=== PATIENT | female | born 1930 | race Caucasian/White ===

== ENCOUNTER 2017-10-16 21:44 | Observation (INO) ==
--- NOTE | 2017-10-16 22:44 | Emergency Department Note ---
Disposition Clinical Impression: Chest pain Qualifiers: Chest pain type: unspecified Qualified Code(s): R07.9 - Chest pain, unspecified Disposition: Admitted As Inpatient Condition: Good Time of Disposition: 00:44 Chest Pain HPI - General Chief Complaint: ED Chest Pain Stated Complaint: chest pain,left arm pain Time Seen by Provider: 10/16/17 22:35 Source: patient, family Mode of arrival: ambulatory Limitations: other Vital Signs Reviewed: Yes Nursing Notes Reviewed: Yes - History of Present Illness HPI Narrative: I have re-performed and reviewed the history documented by the medical student, and I confirm its accuracy except as noted below Agree with medical student history of present illness. We will also add the patient is poor historian, unable to describe the pain other than burning. She does deny any current pain in the chest, shortness of breath. However, she is not able to give me any additional detail as to how long her pain has lasted today, when it ended, if there is any exertional component or pleuritic component. Family is also unable to provide these details. She does deny any history of previous NH, cardiac stents. Severity scale (1-10): 10 - Related Data Home Medications Medication Instructions Recorded Confirmed Alendronate Sodium [Fosamax] 70 mg PO QWEEK 07/07/15 07/07/15 Allopurinol [Zyloprim 100 MG] 100 mg PO DAILY 07/07/15 07/07/15 Aspirin 81 mg PO DAILY 07/07/15 07/07/15 Calcium Carbonate/Vitamin D3 1 each PO DAILY 07/07/15 07/07/15 [Calcium 600 + Vit D Tablet] Colestipol HCl [Colestid] 1 gm PO DAILY 07/07/15 07/07/15 Donepezil [Aricept] 10 mg PO HS 07/07/15 07/07/15 Glimepiride [Amaryl] 1 mg PO DAILY 07/07/15 07/07/15 Oxybutynin [Ditropan] 5 mg PO BID 07/07/15 07/07/15 Simvastatin [Zocor] 40 mg PO HS 07/07/15 07/07/15 Venlafaxine HCl [Venlafaxine HCl 150 mg PO DAILY 07/07/15 07/07/15 ER] metFORMIN [Glucophage] 500 mg PO BID 07/07/15 07/07/15 Previous Rx's Medication Instructions Recorded Celecoxib [Celebrex] 100 mg PO BID #20 capsule 07/11/15 Cyclobenzaprine [Flexeril] 10 mg PO TID #20 tablet 07/11/15 Hydrocodone/Acetaminophen [[place] 1 tab PO Q6H PRN #20 07/11/15 5-325 Tablet] Allergies Allergy/AdvReac Type Severity Reaction Status Date / Time atorvastatin [From Lipitor] Allergy Muscle Pain Verified 07/07/15 01:42 morphine AdvReac Nightmare Verified 07/07/15 01:42 All systems ED: reviewed and negative except as stated. Constitutional: Denies: fever Cardiovascular: Reports: chest pain Respiratory: Reports: dyspnea Gastrointestinal: Denies: abdominal pain, nausea, vomiting, diarrhea Genitourinary: Denies: urgency, dysuria Integumentary: Denies: rash Neurological: Denies: headache, weakness, numbness Chest Pain PMH - Past Medical History Medical history: Reports: arthritis, coronary artery disease, dementia, diabetes , GERD, hyperlipidemia, hypertension, osteoporosis, renal disease, syncope, other Surgical history: Reports: angioplasty/stent (Left heart catheterization without stent placements.), appendectomy, cholecystectomy, hysterectomy, orthopedic, other (Hammertoe surgery. Carpal tunnel surgery.), sinus surgery ( Tonsillectomy adenoidectomy), other (Bladder tuck procedure.) Psychiatric history: Reports: anxiety, depression, other - Social History Smoking Status: Former smoker Alcohol use: Reports: none Drug use: Reports: none Physical Exam - General Limitations: other General appearance: alert - Head Head exam: atraumatic, normocephalic, normal inspection - Eye Eye exam: Present: normal appearance, PERRL, EOMI - ENT ENT exam: normal exam, normal oropharynx, mucous membranes moist - Neck Neck exam: Present: normal inspection, full ROM, trachea midline - Chest Chest inspection: Present: normal inspection, symmetric chest wall rise - Respiratory Respiratory exam: Present: normal lung sounds bilaterally - Cardiovascular Cardiovascular exam: Present: regular rate, normal rhythm, normal heart sounds - Abdominal Exam Abdominal exam: Present: soft, Non-Tender. Absent: tenderness, distention, guarding, rebound, rigidity - Extremities Exam Extremities exam: Present: normal inspection, full ROM. Absent: tenderness, pedal edema - Neurological Exam Neurological exam: Present: alert. Absent: motor sensory deficit - Expanded Neurological Exam Patient oriented to: Present: person, place. Absent: time Speech: Present: fluid speech Cranial nerves: EOM function (II, III, IV, ): Normal, facial sensation (V): Normal, facial palsy (VII): Normal, spinal accessory function (XI): Normal, tongue deviation (XII): Normal Motor strength - LUE: 5/5 Motor strength - RUE: 5/5 Motor strength - LLE: 5/5 Motor strength - RLE: 5/5 Sensory exam upper extremity: light touch: Normal Sensory exam lower extremity: light touch: Normal Coma Scale Eye Opening: Spontaneous Coma Scale Motor Response: Obeys Commands Coma Scale Verbal Response: Confused (Pleasantly confused consistent with Alzheimer's) Coma Scale Total: 14 - Psychiatric Psychiatric exam: Present: normal affect, normal mood - Skin Skin exam: Present: warm, dry, intact, normal color Course Course Narrative: Patient hypertensive in 170s on presentation, rechecked and 140 systolic on recheck. The rest of the vitals WNL. Physical exam shows a patient in no acute distress. She is denying current dyspnea or chest pain but is a very poor historian. No focal neuro deficits. Patient pleasantly confused per baseline with dementia. We will obtain EKG, chest x-ray, troponin. We will admit for chest pain rule out once labs return. 00:14 Trop negative. EKG does show some widening of the QRS and evidence of bundle branch block and 2, 3, aVF. She does have evidence of previous bundle branch block and lead to on previous EKG. Otherwise no acute ST elevation or depression. The rest of the basic blood work showed no major abnormalities. Chest x-ray was negative. Due to poor history, concern for chest pain, abnormal EKG will admit the patient for chest pain rule out. Chest X-Ray 10/16/17 21:53 IMPRESSION: No acute process. D/ / Andrés Her MD / Andrés Her MD Interpreting Provider: Andrés Her MD Vital Signs Temperature 98 F 10/16/17 21:45 Pulse Rate 81 10/16/17 21:45 Respiratory Rate 16 10/16/17 21:45 Blood Pressure 177/71 10/16/17 21:45 O2 Sat by Pulse Oximetry 95 10/16/17 21:45 Temperature 98.4 F 10/17/17 01:28 Pulse Rate 61 10/17/17 01:28 Respiratory Rate 18 10/17/17 01:28 Blood Pressure 112/60 10/17/17 01:28 O2 Sat by Pulse Oximetry 99 10/17/17 01:28 Oxygen Delivery Oxygen Delivery Room Air Chest Pain - MDM Narrative Medical decision making narrative: Patient hypertensive in 170s on presentation, rechecked and 140 systolic on recheck. The rest of the vitals WNL. Physical exam shows a patient in no acute distress. She is denying current dyspnea or chest pain but is a very poor historian. No focal neuro deficits. Patient pleasantly confused per baseline with dementia. We will obtain EKG, chest x-ray, troponin. We will admit for chest pain rule out once labs return. 00:14 Trop negative. EKG does show some widening of the QRS and evidence of bundle branch block and 2, 3, aVF. She does have evidence of previous bundle branch block and lead to on previous EKG. Otherwise no acute ST elevation or depression. The rest of the basic blood work showed no major abnormalities. Chest x-ray was negative. HEART score 6. Due to poor history, concern for chest pain, abnormal EKG will admit the patient for chest pain rule out. - Medical Records Medical records reviewed: Yes I reviewed the patient's medical records. - Lab Data Lab results reviewed: Yes I reviewed the patient's lab results. Result diagrams: 10/16/17 22:59 10/16/17 22:59 Lab Results 10/16/17 10/16/17 10/16/17 Range/Units 22:59 22:59 22:59 WBC 7.5 (4.3-11.1) K/mcL RBC 3.69 L (3.82-4.97) M/mcL Hgb 11.7 (11.5-15.4) g/dL Hct 34.1 L (35.3-44.9) % MCV 92.4 (83.0-100.0) fL MCH 31.7 (28.0-33.3) pg MCHC 34.3 (31.6-35.5) g/dL RDW 13.2 (11.5-14.5) % Plt Count 160 (140-400) K/mcL MPV 10.3 (9.4-12.4) fL Immature Gran % 0.3 (0-4) % Seg Neutrophils % 59.2 % Lymphocytes % 30.2 % Monocytes % 6.9 % Eosinophils % 2.9 % Basophils % 0.5 % Neutrophils # 4.4 (1.6-8.9) K/mcL Lymphocytes # 2.3 (0.6-4.6) K/mcL Monocytes # 0.5 (0.0-1.3) K/mcL Eosinophils # 0.2 (0.0-0.6) K/mcL Basophils # 0.0 (0.0-0.2) K/mcL PT 11.4 (9.4-12.1) Seconds INR 1.0 APTT 28.7 (26.0-36.0) Seconds Sodium 137 (136-145) mEq/L Potassium 3.8 (3.5-5.1) mEq/L Chloride 104 (98-107) mEq/L Carbon Dioxide 27 (23-29) mEq/L BUN 14 (8-23) mg/dL Creatinine 0.63 (0.60-1.20) mg/dL Est GFR ( Amer) > 60 (> 60) Est GFR (Non-Af Amer) > 60 (> 60) BUN/Creatinine Ratio 22 (6-26) Glucose 187 H (70-105) mg/dL Calculated Osmolality 289 (280-300) Calcium 9.2 (8.6-10.3) mg/dL Troponin I < 0.03 (< 0.04) ng/mL - Radiology Data Radiology results reviewed: Yes I reviewed the patient's radiology results. - EKG Data EKG attestation: Yes I reviewed and interpreted this EKG. EKG results narrative: 10/16/2017 at 21:49. Sinus rhythm, rate 79. NC 131. QRS 157. QTC 4 and 63. Left axis deviation. There is evidence of bundle branch block, this is present in lead 2, V6 on previous EKG on 07/07/2015 but worsened on this EKG. There is widening of the QRS. No acute ST elevation or depression. Heart Score - Score History: Moderately Suspicious EKG: Non Specific repolarisation Disturbance Age: Greater than 65 Risk Factors: Equal/Greater than 3 risk factor or history of atherosclerotic disease Troponin: Less than normal limit HEART Score Total: 6 S.B.A.R. - S.B.A.R. Situation: Demographics, MOA Background: Presenting Complaint, Relevant PMH, Meds, & Allergies Assessment: Vital Signs, Course and respsone to treatment, Exam Concerns, Patient/Family Expectation, Pertinant Lab Results Recommendation: Barrier(s) to disposition, Recommendation based on pending studies, treatments, or consults S.B.A.R. Report Given to: Dr. Jimenez Attestation Statement - Attestation Attestation: I examined this patient and my medical decision-making was reviewed with the Resident Physician. I agree with the documented findings, disposition and treatment plan as described except to the extent set forth below. Findings consistent with chest pain. Patient with multiple risk factors. EKG is nondiagnostic at this time. Patient be admitted for serial cardiac biomarkers and cardiac consultation.
--- NOTE | 2017-10-16 23:07 | Emergency Department Note ---
Disposition Clinical Impression: Chest pain Qualifiers: Chest pain type: unspecified Qualified Code(s): R07.9 - Chest pain, unspecified Disposition: Admitted As Inpatient Condition: Good General Adult HPI - General Chief complaint: ED Chest Pain Stated complaint: chest pain,left arm pain Time Seen by Provider: 10/16/17 22:35 Source: patient, family Mode of arrival: ambulatory Limitations: other Vital Signs Reviewed: Yes - History of Present Illness HPI Narrative: 86 y.o. female with PMHx significant for Alzheimer's and aortic valve replacement who presents c/o CP x today. Patient's daughter states she described the pain as burning in nature and that it lasted for several hours. She has also been complaining of L arm and neck pain for the past week or two, with patient's daughter noting that they recently installed a bed rain and believe she has been pulling herself up on it. She was given an Aleve approximately 2 hours [employer], which did not improve symptoms. Daughter denies any recent trauma or falls. She is primarily wheelchair bound and does not walk. Patient has had no other complaints. History is provided by patient's daughters. Pt Subjective Complaint: CP Onset (ago): hour(s) Location: chest Quality: burning Consistency: now resolved Associated symptoms: Denies: cough, fever/chills, headaches, nausea/vomiting, shortness of breath Treatments Prior to Arrival: other (Aleve 8pm) - Related Data Home Medications Medication Instructions Recorded Confirmed Alendronate Sodium [Fosamax] 70 mg PO QWEEK 07/07/15 07/07/15 Allopurinol [Zyloprim 100 MG] 100 mg PO DAILY 07/07/15 07/07/15 Aspirin 81 mg PO DAILY 07/07/15 07/07/15 Calcium Carbonate/Vitamin D3 1 each PO DAILY 07/07/15 07/07/15 [Calcium 600 + Vit D Tablet] Colestipol HCl [Colestid] 1 gm PO DAILY 07/07/15 07/07/15 Donepezil [Aricept] 10 mg PO HS 07/07/15 07/07/15 Glimepiride [Amaryl] 1 mg PO DAILY 07/07/15 07/07/15 Oxybutynin [Ditropan] 5 mg PO BID 07/07/15 07/07/15 Simvastatin [Zocor] 40 mg PO HS 07/07/15 07/07/15 Venlafaxine HCl [Venlafaxine HCl 150 mg PO DAILY 07/07/15 07/07/15 ER] metFORMIN [Glucophage] 500 mg PO BID 07/07/15 07/07/15 Previous Rx's Medication Instructions Recorded Celecoxib [Celebrex] 100 mg PO BID #20 capsule 07/11/15 Cyclobenzaprine [Flexeril] 10 mg PO TID #20 tablet 07/11/15 Hydrocodone/Acetaminophen [[place] 1 tab PO Q6H PRN #20 07/11/15 5-325 Tablet] Allergies Allergy/AdvReac Type Severity Reaction Status Date / Time atorvastatin [From Lipitor] Allergy Muscle Pain Verified 07/07/15 01:42 morphine AdvReac Nightmare Verified 07/07/15 01:42 Constitutional: Denies: fever, chills Cardiovascular: Reports: chest pain. Denies: syncope Respiratory: Denies: cough, dyspnea, wheezes Gastrointestinal: Denies: abdominal pain, nausea, vomiting, diarrhea, constipation Musculoskeletal: Reports: neck pain (L sided), other (L arm) Past Medical History - Past Medical History Medical history: Reports: arthritis, coronary artery disease, dementia, diabetes , GERD, hyperlipidemia, hypertension, osteoporosis, renal disease, syncope, other Surgical history: Reports: angioplasty/stent (Left heart catheterization without stent placements.), appendectomy, cholecystectomy, hysterectomy, orthopedic, other (Hammertoe surgery. Carpal tunnel surgery.), sinus surgery ( Tonsillectomy adenoidectomy), other (Bladder tuck procedure.) Psychiatric history: Reports: anxiety, depression, other - Social History Smoking Status: Former smoker Smokeless Tobacco Status: No Alcohol use: Reports: none Drug use: Reports: none Physical Exam - General Limitations: other General appearance: alert, in no apparent distress - Head Head exam: atraumatic, normocephalic - Eye Eye exam: Present: normal appearance, EOMI. Absent: scleral icterus, conjunctival injection - Neck Neck exam: Present: normal inspection. Absent: tenderness, lymphadenopathy - Chest Chest inspection: Absent: tenderness - Respiratory Respiratory exam: Present: normal lung sounds bilaterally. Absent: respiratory distress, wheezes - Cardiovascular Cardiovascular exam: Present: regular rate, normal rhythm, +S1, +S2. Absent: systolic murmur - Abdominal Exam Abdominal exam: Present: soft, Non-Tender, normal bowel sounds. Absent: distention, guarding, rebound, rigidity - Neurological Exam Neurological exam: Present: alert Course Vital Signs Temperature 98 F 10/16/17 21:45 Pulse Rate 81 10/16/17 21:45 Respiratory Rate 16 10/16/17 21:45 Blood Pressure 177/71 10/16/17 21:45 O2 Sat by Pulse Oximetry 95 10/16/17 21:45 Temperature 98.4 F 10/17/17 01:28 Pulse Rate 61 10/17/17 01:28 Respiratory Rate 18 10/17/17 01:28 Blood Pressure 112/60 10/17/17 01:28 O2 Sat by Pulse Oximetry 99 10/17/17 01:28 Oxygen Delivery Oxygen Delivery Room Air Medical Decision Making - Lab Data Result diagrams: 10/16/17 22:59 10/16/17 22:59 Lab Results 10/16/17 10/16/17 10/16/17 Range/Units 22:59 22:59 22:59 WBC 7.5 (4.3-11.1) K/mcL RBC 3.69 L (3.82-4.97) M/mcL Hgb 11.7 (11.5-15.4) g/dL Hct 34.1 L (35.3-44.9) % MCV 92.4 (83.0-100.0) fL MCH 31.7 (28.0-33.3) pg MCHC 34.3 (31.6-35.5) g/dL RDW 13.2 (11.5-14.5) % Plt Count 160 (140-400) K/mcL MPV 10.3 (9.4-12.4) fL Immature Gran % 0.3 (0-4) % Seg Neutrophils % 59.2 % Lymphocytes % 30.2 % Monocytes % 6.9 % Eosinophils % 2.9 % Basophils % 0.5 % Neutrophils # 4.4 (1.6-8.9) K/mcL Lymphocytes # 2.3 (0.6-4.6) K/mcL Monocytes # 0.5 (0.0-1.3) K/mcL Eosinophils # 0.2 (0.0-0.6) K/mcL Basophils # 0.0 (0.0-0.2) K/mcL PT 11.4 (9.4-12.1) Seconds INR 1.0 APTT 28.7 (26.0-36.0) Seconds Sodium 137 (136-145) mEq/L Potassium 3.8 (3.5-5.1) mEq/L Chloride 104 (98-107) mEq/L Carbon Dioxide 27 (23-29) mEq/L BUN 14 (8-23) mg/dL Glucose 187 H (70-105) mg/dL Calculated Osmolality 289 (280-300) Calcium 9.2 (8.6-10.3) mg/dL Troponin I < 0.03 (< 0.04) ng/mL
[2017-10-16 23:21] LABS: Basophils % 0.5 %; Eosinophils # 0.2 K/mcL (0.0-0.6); Eosinophils % 2.9 %; Hematocrit 34.1 % (35.3-44.9); Hemoglobin 11.7 g/dL (11.5-15.4); Immature Granulocytes % 0.3 % (0-4); Lymphocytes # 2.3 K/mcL (0.6-4.6); Lymphocytes % 30.2 %; Mean Corpuscular HGB Conc 34.3 g/dL (31.6-35.5); Mean Corpuscular Hemoglobin 31.7 pg (28.0-33.3); Mean Corpuscular Volume 92.4 fL (83.0-100.0); Mean Platelet Volume 10.3 fL (9.4-12.4); Monocytes # 0.5 K/mcL (0.0-1.3); Monocytes % 6.9 %; Neutrophils # 4.4 K/mcL (1.6-8.9); Platelet Count 160 K/mcL (140-400); Red Blood Count 3.69 M/mcL (3.82-4.97); Red Cell Distribution Width 13.2 % (11.5-14.5); Segmented Neutrophils % 59.2 %
[2017-10-16 23:35] LABS: Prothrombin Time 11.4 Seconds (9.4-12.1)
[2017-10-16 23:38] LABS: Activated Partial Thrombo Time 28.7 Seconds (26.0-36.0)
[2017-10-16 23:42] LABS: Blood Urea Nitrogen 14 mg/dL (8-23); Calcium 9.2 mg/dL (8.6-10.3); Carbon Dioxide 27 mEq/L (23-29); Chloride 104 mEq/L (98-107); Glucose 187 mg/dL (70-105); Osmolality,Calculated 289 (280-300); Potassium 3.8 mEq/L (3.5-5.1); Sodium 137 mEq/L (136-145); Troponin I < 0.03 ng/mL (< 0.04)
[2017-10-17] MEDS ORDERED: Aspirin 325 MG TABLET PO ONE (00:11)
[2017-10-17 02:32] LABS: BUN/Creatinine Ratio 22 (6-26); eGFR For Non-African Americans > 60 (> 60)
[2017-10-17] MEDS ORDERED: Naloxone 0.4 MG/ML INJ IVP PRN (07:58)
[2017-10-17] MEDS ORDERED: Acetaminophen 325 MG TABLET PO PRN (07:58)
[2017-10-17 08:52] LABS: Basophils # 0.1 K/mcL (0.0-0.2); Basophils % 0.9 %; Eosinophils # 0.3 K/mcL (0.0-0.6); Eosinophils % 4.9 %; Hematocrit 32.4 % (35.3-44.9); Immature Granulocytes % 0.4 % (0-4); Lymphocytes # 1.8 K/mcL (0.6-4.6); Mean Corpuscular Hemoglobin 31.6 pg (28.0-33.3); Mean Corpuscular Volume 93.1 fL (83.0-100.0); Mean Platelet Volume 10.4 fL (9.4-12.4); Monocytes # 0.4 K/mcL (0.0-1.3); Monocytes % 8.3 %; Neutrophils # 2.7 K/mcL (1.6-8.9); Platelet Count 130 K/mcL (140-400); Red Blood Count 3.48 M/mcL (3.82-4.97); Red Cell Distribution Width 13.2 % (11.5-14.5); Segmented Neutrophils % 51.5 %
[2017-10-17] MEDS ORDERED: Metoprolol XL (24 HR) Succ 25 MG TAB.ER.24H PO SCH (09:00)
[2017-10-17] MEDS ORDERED: Venlafaxine XR (24 HR) 150 MG CAP.ER.24H PO SCH (09:00)
[2017-10-17] MEDS ORDERED: Aspirin 81 MG TAB.CHEW PO SCH (09:00)
[2017-10-17 09:10] LABS: BUN/Creatinine Ratio 21 (6-26); Blood Urea Nitrogen 12 mg/dL (8-23); Carbon Dioxide 30 mEq/L (23-29); Chloride 105 mEq/L (98-107); Glucose 127 mg/dL (70-105); Osmolality,Calculated 291 (280-300); Potassium 3.8 mEq/L (3.5-5.1); Sodium 140 mEq/L (136-145); eGFR For Non-African Americans > 60 (> 60)
[2017-10-17 09:11] LABS: Chol/HDL Ratio 3.1 (0-4.9)
[2017-10-17 10:31] VITALS: BP 134/51
--- NOTE | 2017-10-17 14:39 | Internal Med History&Physical ---
Date of Encounter: 10/17/17 Time of Encounter: 09:30 Internal Medicine - H&P: HPI Chief complaint: Chest pain Admitted From: Emergency Dept Plans for Post Hospital Care: Home History of present illness: Ms. Perez is a 86 year old female with history of dementia, hypertension, diabetes, aortic valve replacement with bioprosthetic valve, was brought in by family with complaints of chest pain. Patient is unable to provide any history due to underlying dementia, which is obtained from review of emergency room records and from patient's daughter at bedside. She is ADL dependent and does have 24-hour home supervision. She has been complaining of left arm and shoulder pain for the past week, has been crying in pain yesterday due to retrosternal chest pain, radiating to her neck and jaw. She has no associated diaphoresis, nausea, vomiting, shortness of breath or distress. Patient had a new bedrail installed at home to help her with picking herself up in bed, and family thinks her left arm pain may have been related to this. At this time, patient seems comfortable and does not report any ongoing symptoms , she tolerates diet. Past Med Surg Social Fam HX - Past Medical History Source: old records reviewed, obtained from family Medical history: arthritis, coronary artery disease, dementia, diabetes, GERD, hyperlipidemia, hypertension, osteoporosis, renal disease, other Additional medical history: aortic stenosis Psychiatric history: anxiety, depression - Past Surgical History Surgical History: appendectomy, cholecystectomy, heart valve replacement, hysterectomy, orthopedic, other (Hammertoe surgery. Carpal tunnel surgery.), sinus surgery (Tonsillectomy adenoidectomy), other (Bladder tuck procedure.) - Social History Smoking Status: Former smoker Smokeless Tobacco Status: No Alcohol use: none Drug use: none Occupational status: retired Current living situation: Home, With Family Activity Level: Independent ambulation Recent Out of Country Travel Within the Last 8 Weeks: No Exposure or Possible Exposure to Illness During Travel: No - Family History Mother Hx Family Cancer: Yes (hodgkins lymphoma) Sister Hx Family Cardiac Disorders: Yes ([place]) Internal Medicine - H&P: Meds Allopurinol [Zyloprim 100 MG] 100 mg PO DAILY 07/07/15 [History] Aspirin 81 mg PO DAILY 07/07/15 [History] Calcium Carbonate/Vitamin D3 [Calcium 600 + Vit D Tablet] 1 each PO DAILY [History] Donepezil [Aricept] 10 mg PO HS 07/07/15 [History] Oxybutynin [Ditropan] 5 mg PO TID 07/07/15 [History] Simvastatin [Zocor] 40 mg PO HS 07/07/15 [History] Venlafaxine HCl [Venlafaxine HCl ER] 150 mg PO DAILY 07/07/15 [History] Cholecalciferol (D-3) [Vitamin D] 2,000 unit PO DAILY 10/17/17 [History] Metformin HCl [Metformin HCl ER] 500 mg PO DAILY 10/17/17 [History] Metoprolol Succinate [Toprol Xl] 12.5 mg PO DAILY 10/17/17 [History] Quetiapine Fumarate [SEROquel] 25 mg PO BID 10/17/17 [History] 3 Allergy/AdvReac Type Severity Reaction Status Date / Time atorvastatin [From Lipitor] Allergy Muscle Pain Verified 07/07/15 01:42 morphine AdvReac Nightmare Verified 07/07/15 01:42 All Systems PM: A 10-system review of systems was performed and is negative for pertinent findings except as documented above in the HPI. - Constitutional Constitutional: no chills, no fever(s), no night sweats - EENT Eyes: no change in vision, no discharge, no pain, no photophobia Ears: no ear discharge, no ear pain, no tinnitus Nose, mouth and throat: no dysphagia, no nasal discharge, no neck pain, no sore throat - Cardiovascular Cardiovascular ROS IM: chest pain - Respiratory Respiratory: no cough, no dyspnea, no wheezing, no excessive phlegm production - Gastrointestinal Gastrointestinal: no abdominal pain, no diarrhea, no hematemesis, no hematochezia, no melena, no nausea, no vomiting - Genitourinary Genitourinary: no change in urinary stream, no dysuria, no flank pain, no hematuria - Musculoskeletal Musculoskeletal ROS IM: no numbness, no tingling - Integumentary Integumentary IM: no rash, no unusual bruising - Neurological Neurological ROS: no confusion, no convulsions, no focal weakness, no numbness, no tingling, no tremor(s) - Hematologic/Lymphatic Hematologic/Lymphatic: no easy bruising - Constitutional Vitals: Temp Pulse Resp BP Pulse Ox 96.8 F L 58 18 134/51 96 10/17/17 10:22 10/17/17 10:22 10/17/17 10:22 10/17/17 10:22 10/17/17 10:22 General appearance: Present: A&O X 1. Absent: answers questions appropriately Exam: . - Respiratory Respiratory exam: Present: CTAB. Absent: accessory muscle use, rales, rhonchi, wheezes - Cardiovascular Cardiovascular exam: Present: RRR, +S1, +S2 (mechanical click). Absent: diastolic murmur, gallop, rubs, systolic murmur - GI/Abdominal GI/Abdominal exam: Present: normal bowel sounds, soft, no peritoneal signs. Absent: distended, tenderness - Extremities Exam Extremities exam: Present: full ROM, warm, radial pulses palpable and symmetrical. Absent: calf tenderness, cyanotic, pedal edema - Neurological Exam Neurological exam: Present: altered, CN II-XII intact, no focal deficits. Absent: pronater drift, facial droop, speech deficit - Skin Skin exam: Present: dry, intact Internal Med - H&P Results - Labs CBC & Chem 7: 10/17/17 08:14 10/17/17 08:14 Labs: Short CBC 10/17/17 Range/Units 08:14 WBC 5.3 (4.3-11.1) K/mcL Hgb 11.0 L (11.5-15.4) g/dL Hct 32.4 L (35.3-44.9) % Plt Count 130 L (140-400) K/mcL Neutrophils # 2.7 (1.6-8.9) K/mcL BMP 10/17/17 08:14 Sodium 140 Potassium 3.8 Chloride 105 Carbon Dioxide 30 H BUN 12 Creatinine 0.58 L Glucose 127 H Calcium 9.0 Cardiac Enzymes 10/17/17 10/17/17 Range/Units 08:14 13:56 Troponin I < 0.03 < 0.03 (< 0.04) ng/mL - EKG Data -: EKG Interpreted by Myself EKG shows normal: sinus rhythm (LBBB, bradycardia) Rate: normal, bradycardia - Assessment and plan (1) Chest pain Current Visit: Yes Status: Acute Assessment and plan: Patient is currently asymptomatic. Initial EKG per ER documentation shows sinus rhythm with widened QRS, may be an old change. EKG repeated and personally reviewed-sinus bradycardia, left bundle branch block. Previous EKG on [employer] 2 years ago showed normal sinus rhythm with no block. Telemetry monitoring remained uneventful. Serial troponins are negative. Case discussed with cardiology-given patient's dementia, elderly age and absence of symptoms with normal troponins at this time, defer decision of ischemic evaluation with stress test and left heart catheterization per family. Discussed with patient's daughter at bedside, who agreed with conservative medical management and agreeable to having the patient discharged home to family care, recommends no further inpatient testing. Qualifiers: Chest pain type: unspecified Qualified Code(s): R07.9 - Chest pain, unspecified (2) Dementia Current Visit: Yes Status: Chronic Assessment and plan: fall precautions and supportive care; continue Aricept. Qualifiers: Dementia type: Alzheimer's disease Alzheimer's disease onset: late-onset Dementia behavioral disturbance: without behavioral disturbance Qualified Code (s): G30.1 - Alzheimer's disease with late onset; F02.80 - Dementia in other diseases classified elsewhere without behavioral disturbance (3) Diabetes mellitus Current Visit: Yes Status: Chronic Assessment and plan: Blood sugars well controlled. Continue Accu-Chek blood glucose monitoring, sliding scale insulin as needed. Diabetic diet. Qualifiers: Diabetes mellitus type: type 2 Diabetes mellitus detention insulin use: without long chain beamer use Diabetes mellitus complication status: with unspecified complications Qualified Code(s): E11.8 - Type 2 diabetes mellitus with unspecified complications (4) Hypertension Current Visit: Yes Status: Chronic Qualifiers: Hypertension type: essential hypertension Qualified Code(s): I10 - Essential (primary) hypertension (5) Obesity (BMI 30.0-34.9) Current Visit: Yes Status: Chronic - Time Spent With Patient Total time spent is greater than 50% in coordination of care (as documented) at patient's floor/unit and/or counseling patient:
--- NOTE | 2017-10-17 14:52 | Discharge Summary ---
- NOTES TO OUTPATIENT PROVIDER Notes to Outpatient Provider: chest pain, to f/up as outpatient; Orders not resulted at time of discharge: Pending orders 10/17/17 09:34 EKG [ECG 12 lead ECG] [ECG] Stat 10/17/17 20:00 Troponin I Q6H 10/18/17 04:00 Basic Metabolic Panel AM 0400 Complete Blood Count [HEME] AM 0400 Date of Encounter: 10/17/17 Time of Encounter: 14:50 - Discharge Diagnosis (1) Chest pain Priority: Primary Status: Acute Qualifiers: Chest pain type: unspecified Qualified Code(s): R07.9 - Chest pain, unspecified (2) Dementia Priority: Secondary Status: Chronic Qualifiers: Dementia type: Alzheimer's disease Alzheimer's disease onset: late-onset Dementia behavioral disturbance: without behavioral disturbance Qualified Code (s): G30.1 - Alzheimer's disease with late onset; F02.80 - Dementia in other diseases classified elsewhere without behavioral disturbance (3) Diabetes mellitus Priority: Secondary Status: Chronic Qualifiers: Diabetes mellitus type: type 2 Diabetes mellitus prison insulin use: without prison use Diabetes mellitus complication status: with unspecified complications Qualified Code(s): E11.8 - Type 2 diabetes mellitus with unspecified complications (4) Hypertension Priority: Secondary Status: Chronic Qualifiers: Hypertension type: essential hypertension Qualified Code(s): I10 - Essential (primary) hypertension (5) Obesity (BMI 30.0-34.9) Priority: Secondary Status: Chronic Hospital course: Ms. Perez is a 86 year old female with the above medical problems, admitted with chest pain. Patient has been admitted and is being discharged within 8 hours, please refer to admission history and physical for further details. She was continued on aspirin, statin and beta saray. Telemetry and serial troponins were negative for ACS. EKG was reviewed and case discussed with cardiology , and then with family, opted for medical management and discharge home. Patient is otherwise medically stable. 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 - Time Spent with Patient Total time spent providing and/or coordinating discharge services: Greater than 30 minutes (40 min) - Discharge Medications Home Medications: Allopurinol [Zyloprim 100 MG] 100 mg PO DAILY 07/07/15 [History] Aspirin 81 mg PO DAILY 07/07/15 [History] Calcium Carbonate/Vitamin D3 [Calcium 600 + Vit D Tablet] 1 each PO DAILY [History] Donepezil [Aricept] 10 mg PO HS 07/07/15 [History] Oxybutynin [Ditropan] 5 mg PO TID 07/07/15 [History] Simvastatin [Zocor] 40 mg PO HS 07/07/15 [History] Venlafaxine HCl [Venlafaxine HCl ER] 150 mg PO DAILY 07/07/15 [History] Cholecalciferol (D-3) [Vitamin D] 2,000 unit PO DAILY 10/17/17 [History] Metformin HCl [Metformin HCl ER] 500 mg PO DAILY 10/17/17 [History] Metoprolol Succinate [Toprol Xl] 12.5 mg PO DAILY 10/17/17 [History] Quetiapine Fumarate [Seroquel] 25 mg PO BID 10/17/17 [History] Allergies/Adverse Reactions: 3 Allergy/AdvReac Type Severity Reaction Status Date / Time atorvastatin [From Lipitor] Allergy Muscle Pain Verified 07/07/15 01:42 morphine AdvReac Nightmare Verified 07/07/15 01:42 Date of admission: 10/17/17 00:33 Primary care physician: Ev Multani CNP Discharging clinician: Mara Doshi Anticipated date of discharge: 10/17/17 - Constitutional Vitals: Temp Pulse Resp BP Pulse Ox 96.8 F L 58 18 134/51 96 10/17/17 10:22 10/17/17 10:22 10/17/17 10:22 10/17/17 10:22 10/17/17 10:22 General appearance: Present: A&O X 1. Absent: answers questions appropriately Exam: . - Cardiovascular Cardiovascular exam: Present: RRR, +S1, +S2. Absent: diastolic murmur, gallop, rubs, systolic murmur - Patient Status Disposition: Home, Self-Care Condition: Good Functional capacity at discharge: uses cane/walker Overall status at discharge: patient is progressing back to baseline - Discharge Instructions Follow Up With: Ev Multani CNP [Primary Care Provider] - Additional Instructions: F/up with PCP in 1-2 weeks - Diet and Activity Activity: resume usual activities as tolerated Diet: diabetic diet, low fat, low cholesterol, low salt diet
--- NOTE | 2017-10-20 12:36 | Electrocardiograph Report ---
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
--- NOTE | 2017-10-20 13:09 | Electrocardiograph Report ---
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
== END 2017-10-17 15:38 | disposition home or self-care (01) ==
LOC: 2NENU 21:44 → EMEROOARM 21:44 → SUATTDRO 10-17 00:33 → 2NENU 10-17 01:32
PROVIDERS: ADMIT Internal Medicine; ATTEND Internal Medicine

== ENCOUNTER 2018-10-16 17:14 | Inpatient (IN) ==
--- NOTE | 2018-10-16 17:39 | Emergency Department Note ---
Disposition Clinical Impression: Encephalopathy, Varicella zoster UTI (urinary tract infection) Qualifiers: Urinary tract infection type: acute cystitis Hematuria presence: with hematuria Qualified Code(s): N30.01 - Acute cystitis with hematuria Disposition: Admitted As Inpatient Condition: Fair Time of Disposition: 21:50 General Adult HPI - General Chief complaint: ED General Medical Stated complaint: worsening dementia Time Seen by Provider: 10/16/18 17:25 Source: family, EMS Limitations: no limitations Nursing Notes Reviewed: Yes Vital Signs Reviewed: Yes - History of Present Illness HPI Narrative: Ms. Perez is an 87 yo F with PMH of dementia, HTN, HLD, and DM, presenting emergency department with family who is reporting altered mental status. They state that over the past week or so, she has not been acting like herself. She has been significantly more weak and fatigued. She can roll over to the side of the bed, but not stand on her own, which is unusual. She is frequently talking, but not making sense and not fully understanding who her daughters are. She is not eating or drinking as well as she was before. Her daughter reports that she has been coughing and choking more when she eats. Daughters report that she was also diagnosed with shingles about a week ago with rash over her left chest and left arm. She denies pain, chest pain, dyspnea, abdominal pain, or dysuria, but history is very limited as she is not making sense in her discussions. Family reports no new medications. Pain Scale: 0 - Related Data Home Medications Medication Instructions Recorded Confirmed Allopurinol [Zyloprim 100 MG] 100 mg PO DAILY 07/07/15 10/16/18 Calcium Carbonate/Vitamin D3 1 each PO DAILY 07/07/15 10/16/18 [Calcium 600 + Vit D Tablet] Donepezil [Aricept] 10 mg PO HS 07/07/15 10/16/18 Simvastatin [Zocor] 20 mg PO HS 07/07/15 10/16/18 Venlafaxine HCl [Venlafaxine HCl 150 mg PO DAILY 07/07/15 10/16/18 ER] Cholecalciferol (D-3) [Vitamin D] 2,000 unit PO DAILY 10/17/17 10/16/18 Metformin HCl [Metformin ER 500 mg PO DAILY 10/17/17 10/16/18 Gastric] Metoprolol Succinate [Toprol Xl] 12.5 mg PO DAILY 10/17/17 10/16/18 Quetiapine Fumarate [Seroquel] 25 mg PO HS 10/17/17 10/16/18 Allergies Allergy/AdvReac Type Severity Reaction Status Date / Time atorvastatin [From Lipitor] Allergy Muscle Pain Verified 07/07/15 01:42 morphine AdvReac Nightmare Verified 07/07/15 01:42 Limitations: ROS unobtainable due to patients medical condition Past Medical History - Past Medical History Medical history: Reports: arthritis, coronary artery disease, dementia, diabetes, GERD, hyperlipidemia, hypertension, osteoporosis, other Surgical history: Reports: appendectomy, cholecystectomy, heart valve replacement, hysterectomy, orthopedic, other (Hammertoe surgery. Carpal tunnel surgery.), sinus surgery (Tonsillectomy adenoidectomy), other (Bladder tuck pro cedure.) Psychiatric history: Reports: anxiety, depression - Social History Smoking Status: Former smoker Smokeless Tobacco Status: No Alcohol use: Reports: none Drug use: Reports: none Physical Exam GEN: Mild distress, alert and oriented to self only, confused, agitated at times HEAD: Atraumatic, normocephalic EYES: PERRL, sclera white, conjunctiva pink MOUTH: Dry mucous membranes HEART: RRR, no murmurs LUNGS: Diminished breath sounds bilaterally, no wheezes, rhonchi, or crackles ABD: Soft, nontender, nondistended, no guarding or rigidity EXT: No edema noted, pulses 2/4, skin appears very dry SKIN: Vesicular and erythematous rash with scabs on upper left chest and back NEURO: No focal deficits, able to squeeze with bilateral hands and move both of her legs, difficult to determine if there is nuchal rigidity - General Limitations: no limitations General appearance: in no apparent distress Course Vital Signs Temperature 98.8 F 10/16/18 17:17 Pulse Rate 76 10/16/18 17:17 Respiratory Rate 18 10/16/18 17:17 Blood Pressure 130/51 10/16/18 17:17 O2 Sat by Pulse Oximetry 94 10/16/18 17:17 Temperature 98.8 F 10/16/18 17:17 Pulse Rate 87 10/16/18 19:19 Respiratory Rate 20 10/16/18 19:19 Blood Pressure 133/96 10/16/18 19:19 O2 Sat by Pulse Oximetry 96 10/16/18 19:19 Oxygen Delivery Oxygen Delivery Room Air Procedures - Lumbar Puncture Consent Obtained: verbal consent, written consent Time Out Performed: Yes Patient Position: upright Skin Prep: Povidone-Iodine 1% Local Anesthetic: lidocaine 1% Amount of anesthesia used (mL): 4 Spinal Needle Gauge: 22G Interspace Used: L3-L4 Complications: unable to obtain CSF Medical Decision Making - MDM Narrative Medical decision making narrative: Non-toxic appearing, afebrile, 87 yo F presenting with altered mental status. There is limited history outside of generalized weakness, AMS, and recent Zoster infection. 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 With her confusion, neuro exam is difficult, but appears non-focal, and it is difficult to determine if there is nuchal rigidity. UA is consistent with UTI, will start the patient on Rocephin. CBC, BMP, and TSH normal. Troponin negative. CXR shows no acute abnormality. Head CT with no acute abnormality. She has significant confusion that is likely related to her UTI, but VZV encephalitis is a concern. LP was attempted multiple times in the ED, but unable to obtain sample. IR will likely need to be consulted to complete the sample collection. There is enough concern for VZV encephalitis that we will start acyclovir now. Discussed the case with the pharmacist who recommends the adjusted weight dose of 630mg IV Q8H. She will be admitted to the hospital for further treatment. Discussed the case with Dr. Barriga who is accepting of the admission. - Medical Records Medical records reviewed: Yes I reviewed the patient's medical records. - Lab Data Lab results reviewed: Yes I reviewed the patient's lab results. Result diagrams: 10/16/18 17:53 10/16/18 17:53 Lab Results 10/16/18 10/16/18 10/16/18 Range/Units 17:40 17:53 17:53 WBC 8.3 (4.3-11.1) K/mcL RBC 3.91 (3.82-4.97) M/mcL Hgb 12.2 (11.5-15.4) g/dL Hct 35.9 (35.3-44.9) % MCV 91.8 (83.0-100.0) fL MCH 31.2 (28.0-33.3) pg MCHC 34.0 (31.6-35.5) g/dL RDW 13.0 (11.5-14.5) % Plt Count 164 (140-400) K/mcL MPV 10.2 (9.4-12.4) fL Immature Gran % 0.4 (0-4) % Seg Neutrophils % 70.9 % Lymphocytes % 19.3 % Monocytes % 7.8 % Eosinophils % 1.4 % Basophils % 0.2 % Neutrophils # 5.9 (1.6-8.9) K/mcL Lymphocytes # 1.6 (0.6-4.6) K/mcL Monocytes # 0.7 (0.0-1.3) K/mcL Eosinophils # 0.1 (0.0-0.6) K/mcL Basophils # 0.0 (0.0-0.2) K/mcL Sodium 135 L (136-145) mEq/L Potassium 3.6 (3.5-5.1) mEq/L Chloride 100 (98-107) mEq/L Carbon Dioxide 24 (23-29) mEq/L BUN 15 (8-23) mg/dL Creatinine 0.62 (0.60-1.20) mg/dL Est GFR ( Amer) > 60 (> 60) Est GFR (Non-Af Amer) > 60 (> 60) BUN/Creatinine Ratio 24 (6-26) Glucose 139 H (70-105) mg/dL Calculated Osmolality 283 (280-300) Lactic Acid (0.5-2.2) mmol/L Calcium 9.2 (8.6-10.3) mg/dL Total Bilirubin 0.6 (0.3-1.0) mg/dL AST 24 (13-39) Units/L ALT 15 (7-52) Units/L Alkaline Phosphatase 69 (34-104) Units/L Troponin I < 0.03 (< 0.04) ng/mL Serum Total Protein 6.8 (6.4-8.9) g/dL Albumin 3.7 (3.5-5.7) g/dL Globulin 3.1 (2.4-3.5) g/dL Albumin/Globulin Ratio 1.2 (1.1-2.2) TSH 2.072 (0.340-5.600) mcIU/mL Urine Color Dark Yellow (Yellow) Urine Clarity Clear (Clear) Urine pH 5.0 (5.0-8.0) pH Units Ur Specific [place] 1.026 H (1.010-1.025) Urine Protein 30 H (Neg-Trace) mg/dL Urine Glucose (UA) Normal (Normal) mg/dL Urine Ketones Negative (Negative) mg/dL Urine Blood Large H (Negative) Urine Nitrite Positive A (Negative) Urine Bilirubin Small H (Negative) Urine Urobilinogen 2.0 H (Normal) mg/dL Ur Leukocyte Esterase Large H (Negative) Urine Microscopic RBC 30-50 H (0-3) per hpf Urine Microscopic WBC TNTC H (0-3) per hpf Ur Squamous Epith Cells Many H (None-Few) per lpf Urine Bacteria Many H (None-Few) per hpf Ur Culture Indicated? YES A (NO) Specimen Rejected 10/16/18 10/16/18 Range/Units 18:22 18:46 WBC (4.3-11.1) K/mcL RBC (3.82-4.97) M/mcL Hgb (11.5-15.4) g/dL Hct (35.3-44.9) % MCV (83.0-100.0) fL MCH (28.0-33.3) pg MCHC (31.6-35.5) g/dL RDW (11.5-14.5) % Plt Count (140-400) K/mcL MPV (9.4-12.4) fL Immature Gran % (0-4) % Seg Neutrophils % % Lymphocytes % % Monocytes % % Eosinophils % % Basophils % % Neutrophils # (1.6-8.9) K/mcL Lymphocytes # (0.6-4.6) K/mcL Monocytes # (0.0-1.3) K/mcL Eosinophils # (0.0-0.6) K/mcL Basophils # (0.0-0.2) K/mcL Sodium (136-145) mEq/L Potassium (3.5-5.1) mEq/L Chloride (98-107) mEq/L Carbon Dioxide (23-29) mEq/L BUN (8-23) mg/dL Creatinine (0.60-1.20) mg/dL Est GFR ( Amer) (> 60) Est GFR (Non-Af Amer) (> 60) BUN/Creatinine Ratio (6-26) Glucose (70-105) mg/dL Calculated Osmolality (280-300) Lactic Acid 1.7 (0.5-2.2) mmol/L Calcium (8.6-10.3) mg/dL Total Bilirubin (0.3-1.0) mg/dL AST (13-39) Units/L ALT (7-52) Units/L Alkaline Phosphatase (34-104) Units/L Troponin I (< 0.04) ng/mL Serum Total Protein (6.4-8.9) g/dL Albumin (3.5-5.7) g/dL Globulin (2.4-3.5) g/dL Albumin/Globulin Ratio (1.1-2.2) TSH (0.340-5.600) mcIU/mL Urine Color (Yellow) Urine Clarity (Clear) Urine pH (5.0-8.0) pH Units Ur Specific [place] (1.010-1.025) Urine Protein (Neg-Trace) mg/dL Urine Glucose (UA) (Normal) mg/dL Urine Ketones (Negative) mg/dL Urine Blood (Negative) Urine Nitrite (Negative) Urine Bilirubin (Negative) Urine Urobilinogen (Normal) mg/dL Ur Leukocyte Esterase (Negative) Urine Microscopic RBC (0-3) per hpf Urine Microscopic WBC (0-3) per hpf Ur Squamous Epith Cells (None-Few) per lpf Urine Bacteria (None-Few) per hpf Ur Culture Indicated? (NO) Specimen Rejected Hemolyzed - Radiology Data Radiology results reviewed: Yes I reviewed the patient's radiology results. - EKG Data EKG #1 EKG attestation: Yes I reviewed and interpreted this EKG. EKG results narrative: EKG with sinus rhythm, heart rate 87, PACs, left bundle branch block, and no acute ischemic changes. Consistent with old EKG dated 10/17/17 Attestation Statement - Attestation Attestation: I examined this patient and my medical decision-making was reviewed with the Resident Physician. I agree with the documented findings, disposition and treatment plan as described except to the extent set forth below. 87 yo f brought to ED for evaluation of poor PO intake. Pt recently dx with singles and has had difficulty tolerating antiviral medication. pt is confused at baseline but is more agitated over the past week. Pt unable to give history regarding case and presentation. pt has UTI on lab evaluation. she is afebrile and is not hypotensive. Pt started on antibiotics for UTI in ED. family updated regarding imaging and lab results. After a discussion of risks and benefits regarding LP for evaluation of herpetic encephalopathy and obtaining written and verbal consent from the POA, an LP was attempted using sterile procedure. Pt required anxiolytics prior to the procedure. after multiple attempts we were unsuccessful in trying to obtain CSF. Pt was started on antiviral in the ED and will likely require IR LP tomorrow. Pt was admitted to the hospitalist for further care and evaluation.
[2018-10-16 17:54] LABS: Bilirubin,Urine Small (Negative); Blood,Urine Large (Negative); Clarity,Urine Clear (Clear); Color,Urine Dark Yellow (Yellow); Glucose,Urine (UA) Normal (Normal); Ketones,Urine Negative (Negative); Leukocyte Esterase,Urine Large (Negative); Nitrite,Urine Positive (Negative); Protein,Urine 30 mg/dL (Neg-Trace); Specific Gravity,Urine 1.026 (1.010-1.025)
[2018-10-16 17:56] LABS: Bacteria,Urine Many per hpf (None-Few); Squamous Epithelial Cell,Urine Many per lpf (None-Few); WBC,Urine TNTC per hpf (0-3)
[2018-10-16 18:08] LABS: Basophils % 0.2 %; Eosinophils # 0.1 K/mcL (0.0-0.6); Eosinophils % 1.4 %; Hematocrit 35.9 % (35.3-44.9); Hemoglobin 12.2 g/dL (11.5-15.4); Immature Granulocytes % 0.4 % (0-4); Lymphocytes # 1.6 K/mcL (0.6-4.6); Lymphocytes % 19.3 %; Mean Corpuscular Hemoglobin 31.2 pg (28.0-33.3); Mean Corpuscular Volume 91.8 fL (83.0-100.0); Mean Platelet Volume 10.2 fL (9.4-12.4); Monocytes # 0.7 K/mcL (0.0-1.3); Monocytes % 7.8 %; Neutrophils # 5.9 K/mcL (1.6-8.9); Platelet Count 164 K/mcL (140-400); Red Blood Count 3.91 M/mcL (3.82-4.97); Segmented Neutrophils % 70.9 %; White Blood Count 8.3 K/mcL (4.3-11.1)
[2018-10-16 18:12] LABS: RBC,Urine 30-50 per hpf (0-3)
[2018-10-16 18:35] LABS: Alanine Aminotransferase 15 Units/L (7-52); Albumin 3.7 g/dL (3.5-5.7); Albumin/Globulin Ratio 1.2 (1.1-2.2); Alkaline Phosphatase 69 Units/L (34-104); Aspartate Amino Transferase 24 Units/L (13-39); BUN/Creatinine Ratio 24 (6-26); Bilirubin,Total 0.6 mg/dL (0.3-1.0); Blood Urea Nitrogen 15 mg/dL (8-23); Calcium 9.2 mg/dL (8.6-10.3); Carbon Dioxide 24 mEq/L (23-29); Chloride 100 mEq/L (98-107); Globulin 3.1 g/dL (2.4-3.5); Glucose 139 mg/dL (70-105); Osmolality,Calculated 283 (280-300); Potassium 3.6 mEq/L (3.5-5.1); Sodium 135 mEq/L (136-145); Total Protein 6.8 g/dL (6.4-8.9); Troponin I < 0.03 ng/mL (< 0.04); eGFR For African Americans > 60 (> 60); eGFR For Non-African Americans > 60 (> 60)
[2018-10-16 18:44] LABS: Thyroid Stimulating Hormone 2.072 mcIU/mL (0.340-5.600)
[2018-10-16] MEDS ORDERED: cefTRIAXone 1,000 MG in Water for inj. (sterile) 10 ML IVP ONE (18:55)
[2018-10-16] MEDS ORDERED: Haloperidol Lactate 5 MG/ML VIAL IM ONE (19:23)
[2018-10-16] MEDS ORDERED: *HR* LORazepam 2 MG/ML VIAL IVP ONE ×2 (19:23→20:22)
[2018-10-16] MEDS ORDERED: WATER IVPB SCH (20:00)
[2018-10-16] MEDS ORDERED: D5 IVPB SCH (20:00)
[2018-10-16] MEDS ORDERED: ACYCLOVIR IVPB SCH (20:00)
[2018-10-16] MEDS ORDERED: Acyclovir 1,000 MG/20 ML VIAL IVPB SCH (20:00)
[2018-10-16] MEDS ORDERED: Haloperidol Lactate 5 MG/ML VIAL IM STA (20:40)
[2018-10-17] MEDS ORDERED: Naloxone 0.4 MG/ML INJ IVP PRN (01:00)
--- NOTE | 2018-10-17 01:08 | Internal Med History&Physical ---
Date of Encounter: 10/17/18 Time of Encounter: 00:50 Internal Medicine - H&P: HPI Chief complaint: Altered mental status Admitted From: Emergency Dept Plans for Post Hospital Care: Home History of present illness: Ms. Perez is a 87 year old female Patient presented to the emergency department with altered mental status. She is primarily taken care of by her family, who states that for the last week she has not been acting like herself. She has been more fatigued and lethargic and not making sense when she talks. Family not available for my exam, and patient has been sedated by the emergency department so details of history of present illness obtained from previous emergency department records. Patient's marilyn ters reported that she was diagnosed with shingles about a week ago has been taking oral acyclovir. She has a rash on her left chest and left arm. Family denies any new medication changes. Emergency department vital signs: Within normal limits CBC unremarkable BMP unremarkable, mildly elevated glucose of 139. Initial troponin undetectable Urinalysis: Elevated specific gravity, elevated urine protein. Large blood, positive nitrite, large leukocyte esterase, numerous white blood cells, many urine bacteria. EKG: Sinus rhythm, rate 87, QTC 512 ms. No ischemic changes Chest x-ray showed no acute cardiopulmonary process CT head showed no acute intracranial abnormality. In the emergency department patient received ceftriaxone for urinary tract infection. Blood and urine cultures were obtained. Due to patient recent diagnosis of shingles, there was concern for possible herpes encephalitis. Numerous attempts at lumbar puncture took place, but were each ultimately unsuccessful. Patient required sedation as well for these procedures. Eventually patient was started on IV acyclovir and admitted to the hospital floor for further management. Upon my evaluation, patient is sedated resting comfortably in hospital bed in no acute distress. She does not answer questions nor cooperate with the physical exam. She does appear to be comfortable and maintaining her airway. Patient's vital signs also stable. Patient's daughter who is DURABLE POWER [employer] SPECIALIST indicated that the patient is DNR CC, they wish to proceed with comfort cares only. No further lumbar punctures to be attempted. They do request continue treatment for the urinary tract infection and possible encephalitis. Past Med Surg Social Fam HX - Past Medical History Medical history: arthritis, coronary artery disease, dementia, diabetes, GERD, hyperlipidemia, hypertension, osteoporosis, other Additional medical history: aortic stenosis Psychiatric history: anxiety, depression - Past Surgical History Surgical History: appendectomy, cholecystectomy, heart valve replacement, hysterectomy, orthopedic, other (Hammertoe surgery. Carpal tunnel surgery.), sinus surgery (Tonsillectomy adenoidectomy), other (Bladder tuck procedure.) Additional surgical history: heart valve transplant - Social History Smoking Status: Former smoker Smokeless Tobacco Status: No Alcohol use: none Drug use: none - Family History Mother Hx Family Cancer: Yes (hodgkins lymphoma) Sister Hx Family Cardiac Disorders: Yes (NM) Internal Medicine - H&P: Meds Allopurinol [Zyloprim 100 MG] 100 mg PO DAILY 07/07/15 [History] Calcium Carbonate/Vitamin D3 [Calcium 600 + Vit D Tablet] 1 each PO DAILY 07/07/15 [History] Donepezil [Aricept] 10 mg PO HS 07/07/15 [History] Simvastatin [Zocor] 20 mg PO HS 07/07/15 [History] Venlafaxine HCl [Venlafaxine HCl ER] 150 mg PO DAILY 07/07/15 [History] Cholecalciferol (D-3) [Vitamin D] 2,000 unit PO DAILY 10/17/17 [History] Metformin HCl [Metformin ER Gastric] 500 mg PO DAILY 10/17/17 [History] Metoprolol Succinate [Toprol Xl] 12.5 mg PO DAILY 10/17/17 [History] Quetiapine Fumarate [Seroquel] 25 mg PO HS 10/17/17 [History] Allergy/AdvReac Type Severity Reaction Status Date / Time atorvastatin [From Lipitor] Allergy Muscle Pain Verified 07/07/15 01:42 morphine AdvReac Nightmare Verified 07/07/15 01:42 All Systems PM: A 10-system review of systems was performed and is negative for pertinent findings except as documented above in the HPI. - Constitutional Vitals: Temp Pulse Resp BP Pulse Ox 97.6 F 82 15 124/68 92 10/16/18 23:47 10/16/18 23:47 10/16/18 23:47 10/16/18 23:47 10/16/18 23:47 General appearance: Present: no acute distress. Absent: cooperative, answers questions appropriately Exam: Patient sedated, maintaining airway, no distress - Head Head exam: Present: normal inspection - Eye Additional comments: Patient would not open eyes - Neck Additional comments: Patient would not move head, did not seem to cause pain with manual movement - Respiratory Respiratory exam: Present: CTAB. Absent: rales, respiratory distress, rhonchi, wheezes - Cardiovascular Cardiovascular exam: Present: RRR. Absent: diastolic murmur, systolic murmur - GI/Abdominal GI/Abdominal exam: Present: normal bowel sounds, soft. Absent: tenderness - Extremities Exam Extremities exam: Present: warm, radial pulses palpable and symmetrical. Absent: calf tenderness, pedal edema, tenderness - Neurological Exam Additional comments: Unable to assess - Skin Skin exam: Present: erythema, rash, warm Additional comments: Healing rash on left upper arm, no vesicular lesions remaining Internal Med - H&P Results - Labs CBC & Chem 7: 10/16/18 17:53 10/16/18 17:53 Labs: Short CBC 10/16/18 Range/Units 17:53 WBC 8.3 (4.3-11.1) K/mcL Hgb 12.2 (11.5-15.4) g/dL Hct 35.9 (35.3-44.9) % Plt Count 164 (140-400) K/mcL Neutrophils # 5.9 (1.6-8.9) K/mcL BMP 10/16/18 17:53 Sodium 135 L Potassium 3.6 Chloride 100 Carbon Dioxide 24 BUN 15 Creatinine 0.62 Glucose 139 H Calcium 9.2 Cardiac Enzymes 10/16/18 Range/Units 17:53 Troponin I < 0.03 (< 0.04) ng/mL Liver Function 10/16/18 Range/Units 17:53 Total Bilirubin 0.6 (0.3-1.0) mg/dL AST 24 (13-39) Units/L ALT 15 (7-52) Units/L Alkaline Phosphatase 69 (34-104) Units/L Albumin 3.7 (3.5-5.7) g/dL Urine 10/16/18 Range/Units 17:40 Urine Color Dark Yellow (Yellow) Urine Clarity Clear (Clear) Urine pH 5.0 (5.0-8.0) pH Units Ur Specific [place] 1.026 H (1.010-1.025) Urine Protein 30 H (Neg-Trace) mg/dL Urine Glucose (UA) Normal (Normal) mg/dL - Impressions ITS Impressions Chest X-Ray 10/16/18 17:35 IMPRESSION: No acute cardiopulmonary disease D/ / 10/16/2018 18:32:57 Silviano Kelly MD / bg Interpreting Provider: Silviano Kelly MD Head CT 10/16/18 19:11 IMPRESSION: No acute intracranial abnormality. D/ / Miriam Cole Cha, MD / Miriam Cole Cha, MD Interpreting Provider: Miriam Cole Cha, MD - Assessment and Plan (1) Altered mental status Current Visit: Yes Status: Acute Assessment and plan: Patient presented with altered mental status, likely secondary to urinary tract infection. 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 In the emergency department patient had LPs attempted but they were unsuccessful. Family at this point does not want to pursue further LPs, and wishes to pursue comfort care with continue treatment of her infections. She did require multiple sedating medicines to attempt the LP, and is currently sedated. Continue ceftriaxone for UTI Continue IV acyclovir for shingles and possible encephalitis Continue to monitor Hold further sedating meds Nothing by mouth until patient more alert Qualifiers: Altered mental status type: somnolence Qualified Code(s): R40.0 - Somnolence (2) UTI (urinary tract infection) Current Visit: Yes Status: Acute Assessment and plan: Patient's urinalysis positive for infection. Could be contributing to her altered mental status. She was started on ceftriaxone in the emergency de partment Follow-up urine culture Follow-up blood culture Continue IV ceftriaxone Qualifiers: Urinary tract infection type: acute cystitis Hematuria presence: with hematuria Qualified Code(s): N30.01 - Acute cystitis with hematuria (3) Varicella zoster Current Visit: Yes Status: Acute Assessment and plan: Patient has shingles infection on her left upper extremity. Has been taking oral acyclovir prior to her admission. In the emergency department she has been transitioned to IV acyclovir due to concerns for possible encephalitis. Continue IV acyclovir (4) Diabetes mellitus Current Visit: No Status: Chronic Assessment and plan: Patient is not an insulin dependent diabetic Monitor sugars Q6H NPO, diabetic diet when more awake Low dose insulin sliding scale as needed Hold home meds. Qualifiers: Diabetes mellitus type: type 2 Diabetes mellitus terminal manager insulin use: without terminal manager use Diabetes mellitus complication status: with hyperglycemia Qualified Code(s): E11.65 - Type 2 diabetes mellitus with hyperglycemia (5) DVT prophylaxis Current Visit: Yes Status: Acute Assessment and plan: SCDs - Time Spent With Patient Total time spent is greater than 50% in coordination of care (as documented) at patient's floor/unit and/or counseling patient: Greater than 35 minutes
[2018-10-17] MEDS ORDERED: Dextrose Gel 15 GM/37.5 ML TUBE PO PRN ×2 (01:16)
[2018-10-17] MEDS ORDERED: D5% in Water 1,000 ML IVC PRN (01:16)
[2018-10-17] MEDS ORDERED: *HR* Dextrose 50 % in Water (Syg) 50 ML SYRINGE IVP PRN (01:16)
[2018-10-17] MEDS: 0.9 % Sodium Chloride 1,000 ML IVC SCH ×2 (01:17→12:38)
[2018-10-17] MEDS: ACYCLOVIR IVPB SCH ×3 (05:24→20:37)
[2018-10-17] MEDS: D5 IVPB SCH ×3 (05:24→20:37)
[2018-10-17] MEDS: WATER IVPB SCH ×3 (05:24→20:37)
--- NOTE | 2018-10-17 07:31 | Internal Med Progress Note ---
<Vivian Odonnell - Last Filed: 10/17/18 12:16> Hospitalist Progress Note - Encounter Date of Encounter: 10/17/18 - Exam Vitals: Temp Pulse Resp BP Pulse Ox 99.2 F 78 19 103/60 92 10/17/18 12:06 10/17/18 12:06 10/17/18 12:06 10/17/18 12:06 10/17/18 07:33 - Assessment and Plan (1) Diabetes mellitus Current Visit: No Status: Chronic (2) UTI (urinary tract infection) Current Visit: Yes Status: Acute (3) Varicella zoster Current Visit: Yes Status: Acute (4) Altered mental status Current Visit: Yes Status: Acute (5) DVT prophylaxis Current Visit: Yes Status: Acute - Time Spent with Patient Total time spent is greater than 50% in coordination of care (as documented) at patient's floor/unit and/or counseling patient: Internal Medicine: Result - Labs CBC & Chem 7: 10/17/18 07:59 10/17/18 07:59 Labs: Short CBC 10/16/18 10/17/18 Range/Units 17:53 07:59 WBC 8.3 7.3 (4.3-11.1) K/mcL Hgb 12.2 10.7 L D (11.5-15.4) g/dL Hct 35.9 31.2 L (35.3-44.9) % Plt Count 164 151 (140-400) K/mcL Neutrophils # 5.9 4.7 (1.6-8.9) K/mcL BMP 10/16/18 10/17/18 17:53 07:59 Sodium 135 L 135 L Potassium 3.6 3.2 L Chloride 100 102 Carbon Dioxide 24 26 BUN 15 14 Creatinine 0.62 0.66 Glucose 139 H 151 H Calcium 9.2 8.5 L Cardiac Enzymes 10/16/18 Range/Units 17:53 Troponin I < 0.03 (< 0.04) ng/mL Liver Function 10/16/18 Range/Units 17:53 Total Bilirubin 0.6 (0.3-1.0) mg/dL AST 24 (13-39) Units/L ALT 15 (7-52) Units/L Alkaline Phosphatase 69 (34-104) Units/L Albumin 3.7 (3.5-5.7) g/dL Urine 10/16/18 Range/Units 17:40 Urine Color Dark Yellow (Yellow) Urine Clarity Clear (Clear) Urine pH 5.0 (5.0-8.0) pH Units Ur Specific [place] 1.026 H (1.010-1.025) Urine Protein 30 H (Neg-Trace) mg/dL Urine Glucose (UA) Normal (Normal) mg/dL - Impressions Impressions Chest X-Ray 10/16/18 17:35 IMPRESSION: No acute cardiopulmonary disease D/ / 10/16/2018 18:32:57 Silviano Kelly MD / bg Interpreting Provider: Silviano Kelly MD Head CT 10/16/18 19:11 IMPRESSION: No acute intracranial abnormality. D/ / Miriam Cole Cha, MD / Miriam Cole Cha, MD Interpreting Provider: Miriam Cole Cha, MD Consult Discharge Plan - Plan Referrals: Ev Multani CNP [Primary Care Provider] - - Attending Attestation The history, physical exam, and medical decision making was performed by the medical student Danny either while I was physically present and actively involved or I personally re-performed the exam and medical decision making. I have verified the accuracy of the medical student's documentation with regards to the history, physical exam findings, and medical decision making. Ms Perez requires admission for enecpahlaopthy with UTI and cannot rule out herpes encephalitis in setting of known zoster infection she is asleep, awakes to name and is pleasant but quickly falls asleep. daughter is at bedside . pt denies pain, headache but does not provide other information before falling back to sleep. Her daughter notes her to be calm and comfortable appearing. She has not returned to baseline mentation. She does have dementia at baseline. She has noted generalized weakness but over last week has not noted any focal ext strength deficits and has been moving all extremities. Speech when she is awake is at baseline. She contacted her sister who is POA. They are agreeable to routine lab draws and MRI if pt will cooperate. They do not want LP as noted last night after multiple attempts. All questions answered and tx plan discussed gen- somnolent, appears stated age eyes- pupils equal round , eom intact cv- reg rate and rhythm, normal s1,s2, no le edema lungs- ctabl, no wheezing, rhonchi or crackles, normal resp effort abd- soft, non tender, non distended, + bs neuro- AAOxperson, CN appear grossly intact, does not follow commands for further neuro testing due to somnolence and difficulty maintaining attention, spontaneously moves upper extremities while sleeping and shifting weight Encephalopathy, suspected infectious- UTI and cannot rule out encephalitis w current herpes zoster No signs of ACS, no hx that clinically correlates with a CVA, no metabolic disturbance identified -UTI tx w rocephin, Zoster and possible herpese enceph tx with IV acyclovir w dosing confirmed by pharmacy -family made DNR CC, no LPs, ok to check labs and MRI today, dc tele monitor DM- currently npo due to mentation w IVFs, cont SSI, q6h checks, prn hyp oglycemics, will change diet when more awake, hold metformin Chronic conditions: CAD- cont statin + BB HTN- cont BB Dementia w hx of valve replacement NOT on AC Anxiety/Depression- hold seroquel in setting of AMS and cont effexor <Ifeanyi Delgado - Last Filed: 10/17/18 16:12> Hospitalist Progress Note - Encounter Date of Encounter: 10/17/18 Time of Encounter: 07:31 - Subjective Interval History: Ms. Perez is an 87 y/o F who presented to the ED on 10/16 with altered mental status. She is somnolent and cannot answer questions well. Pt.'s daughter is at bedside and gave a brief HPI as follows: Pt. started to have altered mental state 2 weeks ago and started to have outbreak of herpes zoster on left arm and back around the same time. Pt. did not complain of pain, dysuria, polyuria, SOB, coughing or fevers at anytime prior to admission. Pt. did complain of a headache recently for the past few days and a backache for the last week. Pt. is currently comfortably sleeping in bed. While awake she denies pain or headache. - Exam Vitals: Temp Pulse Resp BP Pulse Ox 98.0 F 83 16 146/73 90 10/17/18 04:37 10/17/18 04:37 10/17/18 04:37 10/17/18 04:37 10/17/18 04:37 Exam: Gen: Somnolent, no acute distress Chest: CTA b/l, no wheezes or crackles Cardio: S1/S2, no m/r/g. Abd: non-tender, soft, bowel sounds present Skin: shingles rash on left upper arm extending to back, does not cross midline; skin otherwise warm and dry Neuro: oriented to person, spontaneously moves upper and lower extremities while asleep. - Assessment and Plan (1) Altered mental status Current Visit: Yes Status: Acute Assessment and Plan: Pt.'s mental status has been decreasing for about 2 weeks. Possibly due to encephalitis or due to UTI. UTI being treated with Rocephin Currently on IV acyclovir for possible herpes encephalitis, family requests not to attempt lumbar puncture to test CSF Pt. will continue to be treated as above, we will continue to monitor mental status. 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 Currently being treated with IV Acyclovir for possible encephalitis UTI being treated with IV Rocephin (3) UTI (urinary tract infection) Current Visit: Yes Status: Acute Assessment and Plan: Urinalysis came back positive for UTI. Cultures are still pending. Currently being treated with IV Rocephin. (4) Varicella zoster Current Visit: Yes Status: Acute Assessment and Plan: Pt. was diagnosed and started on PO Acyclovir about 1 week ago but was only able to take 1 dose according to HPI from daughter. Currently receiving IV Acyclovir along with IV Rochepin for UTI. (5) Diabetes mellitus Current Visit: No Status: Chronic Assessment and Plan: Currently NPO due to mental status. Pt. receiving IVFs. Metformin hold, q6hr glucose checks, prn hypoglycemics. (6) DVT prophylaxis Current Visit: Yes Status: Acute - Time Spent with Patient Total time spent is greater than 50% in coordination of care (as documented) at patient's floor/unit and/or counseling patient: Internal Medicine: Result - Labs CBC & Chem 7: 10/17/18 07:59 10/17/18 07:59 Labs: Short CBC 10/16/18 Range/Units 17:53 WBC 8.3 (4.3-11.1) K/mcL Hgb 12.2 (11.5-15.4) g/dL Hct 35.9 (35.3-44.9) % Plt Count 164 (140-400) K/mcL Neutrophils # 5.9 (1.6-8.9) K/mcL BMP 10/16/18 17:53 Sodium 135 L Potassium 3.6 Chloride 100 Carbon Dioxide 24 BUN 15 Creatinine 0.62 Glucose 139 H Calcium 9.2 Cardiac Enzymes 10/16/18 Range/Units 17:53 Troponin I < 0.03 (< 0.04) ng/mL Liver Function 10/16/18 Range/Units 17:53 Total Bilirubin 0.6 (0.3-1.0) mg/dL AST 24 (13-39) Units/L ALT 15 (7-52) Units/L Alkaline Phosphatase 69 (34-104) Units/L Albumin 3.7 (3.5-5.7) g/dL Urine 10/16/18 Range/Units 17:40 Urine Color Dark Yellow (Yellow) Urine Clarity Clear (Clear) Urine pH 5.0 (5.0-8.0) pH Units Ur Specific [place] 1.026 H (1.010-1.025) Urine Protein 30 H (Neg-Trace) mg/dL Urine Glucose (UA) Normal (Normal) mg/dL - Impressions Impressions Chest X-Ray 10/16/18 17:35 IMPRESSION: No acute cardiopulmonary disease D/ / 10/16/2018 18:32:57 Silviano Kelly MD / bg Interpreting Provider: Silviano Kelly MD Head CT 10/16/18 19:11 IMPRESSION: No acute intracranial abnormality. 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 renewal inspector insulin use: without termite renewal inspector use Diabetes mellitus complication status: with hyperglycemia Qualified Code(s): E11.65 - Type 2 diabetes mellitus with hyperglycemia (2) UTI (urinary tract infection) Qualifiers: Urinary tract infection type: acute cystitis Hematuria presence: with hematuria Qualified Code(s): N30.01 - Acute cystitis with hematuria (4) Altered mental status Qualifiers: Altered mental status type: somnolence Qualified Code(s): R40.0 - Somnolence <Ifeanyi Delgado - Last Filed: 10/17/18 16:12> (1) Altered mental status Qualifiers: Altered mental status type: somnolence Qualified Code(s): R40.0 - Somnolence (3) UTI (urinary tract infection) Qualifiers: Urinary tract infection type: acute cystitis Hematuria presence: with hematuria Qualified Code(s): N30.01 - Acute cystitis with hematuria (5) Diabetes mellitus Qualifiers: Diabetes mellitus type: type 2 Diabetes mellitus termite renewal inspector insulin use: without alf use Diabetes mellitus complication status: with hyperglycemia Qualified Code(s): E11.65 - Type 2 diabetes mellitus with hyperglycemia
[2018-10-17] MEDS: Insulin LISPRO 300 UNITS/3 ML VIAL SQ SCH ×3 (08:12→18:33)
[2018-10-17 08:25] LABS: Basophils % 0.1 %; Eosinophils # 0.1 K/mcL (0.0-0.6); Eosinophils % 1.5 %; Hematocrit 31.2 % (35.3-44.9); Hemoglobin 10.7 g/dL (11.5-15.4); Immature Granulocytes % 0.4 % (0-4); Lymphocytes # 1.7 K/mcL (0.6-4.6); Lymphocytes % 23.9 %; Mean Corpuscular HGB Conc 34.3 g/dL (31.6-35.5); Mean Corpuscular Hemoglobin 31.7 pg (28.0-33.3); Mean Corpuscular Volume 92.3 fL (83.0-100.0); Mean Platelet Volume 10.1 fL (9.4-12.4); Monocytes # 0.7 K/mcL (0.0-1.3); Monocytes % 9.2 %; Neutrophils # 4.7 K/mcL (1.6-8.9); Platelet Count 151 K/mcL (140-400); Red Blood Count 3.38 M/mcL (3.82-4.97); Segmented Neutrophils % 64.9 %; White Blood Count 7.3 K/mcL (4.3-11.1)
[2018-10-17] MEDS: cefTRIAXone 1,000 MG in Water for inj. (sterile) 10 ML IVP SCH (08:35)
[2018-10-17 08:45] LABS: BUN/Creatinine Ratio 21 (6-26); Blood Urea Nitrogen 14 mg/dL (8-23); Calcium 8.5 mg/dL (8.6-10.3); Carbon Dioxide 26 mEq/L (23-29); Chloride 102 mEq/L (98-107); Glucose 151 mg/dL (70-105); Osmolality,Calculated 283 (280-300); Potassium 3.2 mEq/L (3.5-5.1); Sodium 135 mEq/L (136-145); eGFR For African Americans > 60 (> 60); eGFR For Non-African Americans > 60 (> 60)
--- NOTE | 2018-10-17 11:48 | Electrocardiograph Report ---
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
[2018-10-18] MEDS: Insulin LISPRO 300 UNITS/3 ML VIAL SQ SCH ×5 (00:01→22:12)
[2018-10-18 04:56] LABS: Basophils % 0.5 %; Eosinophils # 0.1 K/mcL (0.0-0.6); Eosinophils % 2.3 %; Hematocrit 30.4 % (35.3-44.9); Hemoglobin 10.3 g/dL (11.5-15.4); Immature Granulocytes % 0.4 % (0-4); Lymphocytes # 1.4 K/mcL (0.6-4.6); Lymphocytes % 25.5 %; Mean Corpuscular HGB Conc 33.9 g/dL (31.6-35.5); Mean Corpuscular Hemoglobin 30.7 pg (28.0-33.3); Mean Corpuscular Volume 90.5 fL (83.0-100.0); Mean Platelet Volume 9.8 fL (9.4-12.4); Monocytes # 0.5 K/mcL (0.0-1.3); Monocytes % 8.2 %; Neutrophils # 3.6 K/mcL (1.6-8.9); Platelet Count 132 K/mcL (140-400); Red Blood Count 3.36 M/mcL (3.82-4.97); Red Cell Distribution Width 12.7 % (11.5-14.5); Segmented Neutrophils % 63.1 %; White Blood Count 5.6 K/mcL (4.3-11.1)
[2018-10-18] MEDS: WATER IVPB SCH ×3 (05:04→20:14)
[2018-10-18] MEDS: D5 IVPB SCH ×3 (05:04→20:14)
[2018-10-18] MEDS: ACYCLOVIR IVPB SCH ×3 (05:04→20:14)
[2018-10-18 05:17] LABS: BUN/Creatinine Ratio 17 (6-26); Blood Urea Nitrogen 9 mg/dL (8-23); Calcium 8.1 mg/dL (8.6-10.3); Carbon Dioxide 24 mEq/L (23-29); Chloride 105 mEq/L (98-107); Glucose 121 mg/dL (70-105); Osmolality,Calculated 282 (280-300); Potassium 3.5 mEq/L (3.5-5.1); Sodium 136 mEq/L (136-145); eGFR For African Americans > 60 (> 60); eGFR For Non-African Americans > 60 (> 60)
[2018-10-18] MEDS: Cholecalciferol (D-3) 1,000 UNIT (25MCG) TABLET PO SCH (08:09)
[2018-10-18] MEDS: cefTRIAXone 1,000 MG in Water for inj. (sterile) 10 ML IVP SCH (08:09)
[2018-10-18] MEDS: Venlafaxine XR (24 HR) 150 MG CAP.ER.24H PO SCH (08:09)
[2018-10-18] MEDS: Metoprolol XL (24 HR) Succ 25 MG TAB.ER.24H PO SCH (08:09)
--- NOTE | 2018-10-18 08:21 | Internal Med Progress Note ---
<Vivian Odonnell - Last Filed: 10/18/18 11:59> Hospitalist Progress Note - Encounter Date of Encounter: 10/18/18 - Exam Vitals: Temp Pulse Resp BP Pulse Ox 98.0 F 81 20 146/60 94 10/18/18 07:26 10/18/18 07:26 10/18/18 07:26 10/18/18 07:26 10/18/18 07:26 - Assessment and Plan (1) Diabetes mellitus Current Visit: No Status: Chronic (2) UTI (urinary tract infection) Current Visit: Yes Status: Acute (3) Varicella zoster Current Visit: Yes Status: Acute (4) Altered mental status Current Visit: Yes Status: Acute (5) DVT prophylaxis Current Visit: Yes Status: Acute - Time Spent with Patient Total time spent is greater than 50% in coordination of care (as documented) at patient's floor/unit and/or counseling patient: Internal Medicine: Result - Labs CBC & Chem 7: 10/18/18 04:36 10/18/18 04:36 Labs: Short CBC 10/18/18 Range/Units 04:36 WBC 5.6 (4.3-11.1) K/mcL Hgb 10.3 L (11.5-15.4) g/dL Hct 30.4 L (35.3-44.9) % Plt Count 132 L (140-400) K/mcL Neutrophils # 3.6 (1.6-8.9) K/mcL BMP 10/18/18 04:36 Sodium 136 Potassium 3.5 Chloride 105 Carbon Dioxide 24 BUN 9 Creatinine 0.53 L Glucose 121 H Calcium 8.1 L - Impressions Impressions Brain MRI 10/17/18 10:37 IMPRESSION: No acute infarct or MRI evidence encephalitis at this time. D/ / Eric Dawson MD / Eric Dawson MD Interpreting Provider: Eric Dawson MD Consult Discharge Plan - Plan Referrals: Ev Multani BEE WORKER [Primary Care Provider] - - Attending Attestation The history, physical exam, and medical decision making was performed by the medical student Danny either while I was physically present and actively involved or I personally re-performed the exam and medical decision making. I have verified the accuracy of the medical student's documentation with regards to the history, physical exam findings, and medical decision making. Ms Perez requires admission for enecpahlaopthy with UTI and in setting of known zoster infection awake, alert, converses but clearly confused. she denies any pain or needs. further hpi or ros cannot be obtained due to dementia and no family present later daughter updated team she is back to baseline mental status gen- awake, alert appears stated age eyes- pupils equal round cv- reg rate and rhythm, normal s1,s2 lungs- ctabl, no wheezing, rhonchi or crackles, normal resp effort abd- soft, non tender, non distended, + bs neuro- AAOxperson, CN appear grossly intact, normal strength throughout ext without any deficits noted Encephalopathy, suspected infectious- UTI and known non disseminated herpes zoster MRI neg cva or signs of enecephalitis -UTI tx w rocephin, Zoster and cannot definitely r/o herpes enceph without LP- cont IV acyclovir -family made DNR CC, discussing placement/hospice/dispo with SW and possibly palliative care DM- resume diet, cont SSI Chronic conditions: CAD- cont statin + BB HTN- cont BB Dementia now at baseline w hx of valve replacement NOT on AC Anxiety/Depression- hold seroquel in setting of AMS and cont effexor beginning dispo planning with her improvement today <Ifeanyi Delgado - Last Filed: 10/18/18 16:01> Hospitalist Progress Note - Encounter Date of Encounter: 10/18/18 Time of Encounter: 08:21 - Subjective Interval History: Ms. Perez is an 87 y/o F who presented on 10/17 with altered mental status. She was not able to give a history or answer questions during examination. She was suspected for herpes encephalitis due to a varicella zoster outbreak on her left upper arm that had been ongoing for 2 weeks. She was being treated with PO acyclovir but missed several doses. Pt.'s U/A came back positive for a UTI which culture revealed pansensitive E.coli, currently being treated with IV rocephin. Pt.'s mental status has improved from yesterday but we are not able to determine if she is at baseline. Pt. denies fever, chills, pain, numbness, tingling, or headache. - Exam Vitals: Temp Pulse Resp BP Pulse Ox 98.0 F 81 20 146/60 94 10/18/18 07:26 10/18/18 07:26 10/18/18 07:26 10/18/18 07:10/18/18 07:26 Exam: Gen: Oriented to person, no acute distress, pleasant affect Chest: CTA b/l, no wheezes or crackles Cardio: S1/S2, no m/r/g. Abd: non-tender, soft, bowel sounds present Skin: shingles rash on left upper arm extending to back, does not cross midline; skin otherwise warm and dry Neuro: spontaneously moves upper and lower extremities while asleep, sensation intact on all 4 extremities MSK: muscle strength 5/5 in all extremities, exam limited due to Pt.'s mental status HEENT: normocephalic, PERRLA - Assessment and Plan (1) Altered mental status Current Visit: Yes Status: Acute Assessment and Plan: Pt.'s mental status has been decreasing for about 2 weeks, possibly due to encephalitis or due to UTI. UTI cultures returned positive for pansensitive E. coli bacteria, currently being treated with Rocephin. Currently on IV acyclovir for possible herpes encephalitis, family requests not to attempt lumbar puncture to test CSF, MRI was normal, highly unlikely to be encephalitis. Pt.'s mental status has improved from yesterday and was alert, oriented to person, able to answer some questions. Speech evaluation was done to assess pt.'s ability to eat - recommendation to resume normal diet. Family has decided to move patient to SNF upon discharge, SNF contacted and will be able to receive patient Sunday when bed is ready. Pt. will continue to be treated as above, we will continue to monitor mental sta tus q4h. 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 Currently being treated with IV Acyclovir for possible encephalitis UTI being treated with IV Rocephin MRI on 10/17 showed no evidence of encephalitis, pt.'s mental status improved since yesterday. (3) UTI (urinary tract infection) Current Visit: Yes Status: Acute Assessment and Plan: Cultures returned Pansensitive E.coli bacteria. Pt. currently receiving IV rocephin, will continue treatment until discharge, pt. will receive PO antibiotics on discharge. Mental status is improved from 10/17 (4) Varicella zoster Current Visit: Yes Status: Acute Assessment and Plan: Pt. was diagnosed and started on PO Acyclovir about 1 week ago but was only able to take 1 dose according to HPI from daughter. Currently receiving IV Acyclovir along with IV Rochepin for UTI. Mental status has improved from 10/17, IV treatment will continue until discharge where pt. will receive PO antibiotics and acyclovir. (5) Diabetes mellitus Current Visit: No Status: Chronic Assessment and Plan: Pt. is still having trouble eating and drinking as of 10/17 morning. Speech therapy was consultated for evaluation and recommendation was made to return to regular diet. Sliding scale insulin will be continued, q6hr glucose checks, prn hypoglycemics, glucose is currently under control and is 121. (6) DVT prophylaxis Current Visit: Yes Status: Acute Assessment and Plan: Currently using SCD's for prophylaxis. - Time Spent with Patient Total time spent is greater than 50% in coordination of care (as documented) at patient's floor/unit and/or counseling patient: Internal Medicine: Result - Labs CBC & Chem 7: 10/18/18 04:36 10/18/18 04:36 Labs: Short CBC 10/17/18 10/18/18 Range/Units 07:59 04:36 WBC 7.3 5.6 (4.3-11.1) K/mcL Hgb 10.7 L D 10.3 L (11.5-15.4) g/dL Hct 31.2 L 30.4 L (35.3-44.9) % Plt Count 151 132 L (140-400) K/mcL Neutrophils # 4.7 3.6 (1.6-8.9) K/mcL BMP 10/17/18 10/18/18 07:59 04:36 Sodium 135 L 136 Potassium 3.2 L 3.5 Chloride 102 105 Carbon Dioxide 26 24 BUN 14 9 Creatinine 0.66 0.53 L Glucose 151 H 121 H Calcium 8.5 L 8.1 L - Impressions Impressions Brain MRI 10/17/18 10:37 IMPRESSION: No acute infarct or MRI evidence encephalitis at this time. D/ / Eric Dawson MD / Eric Dawson MD Interpreting Provider: Eric Dawson MD <Vivian Odonnell - Last Filed: 10/18/18 11:59> (1) Diabetes mellitus Qualifiers: Diabetes mellitus type: type 2 Diabetes mellitus long term acute care registered nurse insulin use: without usp use Diabetes mellitus complication status: with hyperglycemia Qualified Code(s): E11.65 - Type 2 diabetes mellitus with hyperglycemia (2) UTI (urinary tract infection) Qualifiers: Urinary tract infection type: acute cystitis Hematuria presence: with hematuria Qualified Code(s): N30.01 - Acute cystitis with hematuria (4) Altered mental status Qualifiers: Altered mental status type: somnolence Qualified Code(s): R40.0 - Somnolence <Ifeanyi Delgado J - Last Filed: 10/18/18 16:01> (1) Altered mental status Qualifiers: Altered mental status type: somnolence Qualified Code(s): R40.0 - Somnolence (3) UTI (urinary tract infection) Qualifiers: Urinary tract infection type: acute cystitis Hematuria presence: with hematuria Qualified Code(s): N30.01 - Acute cystitis with hematuria (5) Diabetes mellitus Qualifiers: Diabetes mellitus type: type 2 Diabetes mellitus long term acute care registered nurse insulin use: without long term acute care registered nurse use Diabetes mellitus complication status: with hyperglycemia Qualified Code(s): E11.65 - Type 2 diabetes mellitus with hyperglycemia
--- NOTE | 2018-10-18 13:14 | Event Note ---
Date of Encounter: 10/18/18 Time of Encounter: 13:00 Received consult on patient. Prior to consult, I was notified by social problems specialist that family has decided for patient to be discharged to [facility]. Consult originally stated for guidance on care options. Patient is already a DNRCC and social work has met with family and have plan in place. Notified Dr. Contreras who stated that we did no longer need to see this patient.
[2018-10-18] MEDS: Calamine/Zinc oxide Lotion 120 ML BOTTLE TP PRN ×2 (15:21→20:13)
[2018-10-18] MEDS: DiphenhydraMINE CREAM 28.4 GM TUBE TP PRN (22:50)
[2018-10-19 03:20] LABS: Basophils % 0.5 %; Eosinophils # 0.1 K/mcL (0.0-0.6); Eosinophils % 1.8 %; Hematocrit 30.2 % (35.3-44.9); Hemoglobin 10.4 g/dL (11.5-15.4); Immature Granulocytes % 0.6 % (0-4); Lymphocytes # 1.4 K/mcL (0.6-4.6); Lymphocytes % 21.2 %; Mean Corpuscular HGB Conc 34.4 g/dL (31.6-35.5); Mean Corpuscular Hemoglobin 31.7 pg (28.0-33.3); Mean Corpuscular Volume 92.1 fL (83.0-100.0); Mean Platelet Volume 10.1 fL (9.4-12.4); Monocytes # 0.6 K/mcL (0.0-1.3); Monocytes % 8.7 %; Neutrophils # 4.4 K/mcL (1.6-8.9); Platelet Count 149 K/mcL (140-400); Red Blood Count 3.28 M/mcL (3.82-4.97); Red Cell Distribution Width 12.7 % (11.5-14.5); Segmented Neutrophils % 67.2 %; White Blood Count 6.5 K/mcL (4.3-11.1)
[2018-10-19 03:39] LABS: BUN/Creatinine Ratio 13 (6-26); Blood Urea Nitrogen 8 mg/dL (8-23); Calcium 8.3 mg/dL (8.6-10.3); Carbon Dioxide 24 mEq/L (23-29); Chloride 102 mEq/L (98-107); Glucose 129 mg/dL (70-105); Osmolality,Calculated 280 (280-300); Potassium 3.7 mEq/L (3.5-5.1); Sodium 135 mEq/L (136-145); eGFR For African Americans > 60 (> 60); eGFR For Non-African Americans > 60 (> 60)
[2018-10-19] MEDS: D5 IVPB SCH ×3 (06:05→20:56)
[2018-10-19] MEDS: ACYCLOVIR IVPB SCH ×3 (06:05→20:56)
[2018-10-19] MEDS: WATER IVPB SCH ×3 (06:05→20:56)
--- NOTE | 2018-10-19 07:27 | Internal Med Progress Note ---
<Vivian Odonnell - Last Filed: 10/19/18 10:46> Hospitalist Progress Note - Encounter Date of Encounter: 10/19/18 - Exam Vitals: Temp Pulse Resp BP Pulse Ox 98.1 F 71 16 118/55 91 10/19/18 08:14 10/19/18 08:14 10/19/18 08:14 10/19/18 08:14 10/19/18 08:14 - Assessment and Plan (1) Diabetes mellitus Current Visit: No Status: Chronic (2) UTI (urinary tract infection) Current Visit: Yes Status: Acute (3) Varicella zoster Current Visit: Yes Status: Acute (4) Altered mental status Current Visit: Yes Status: Acute (5) DVT prophylaxis Current Visit: Yes Status: Acute - Time Spent with Patient Total time spent is greater than 50% in coordination of care (as documented) at patient's floor/unit and/or counseling patient: Internal Medicine: Result - Labs CBC & Chem 7: 10/19/18 03:07 10/19/18 03:07 Labs: Short CBC 10/19/18 Range/Units 03:07 WBC 6.5 (4.3-11.1) K/mcL Hgb 10.4 L (11.5-15.4) g/dL Hct 30.2 L (35.3-44.9) % Plt Count 149 (140-400) K/mcL Neutrophils # 4.4 (1.6-8.9) K/mcL BMP 10/19/18 03:07 Sodium 135 L Potassium 3.7 Chloride 102 Carbon Dioxide 24 BUN 8 Creatinine 0.61 Glucose 129 H Calcium 8.3 L Consult Discharge Plan - Plan Referrals: Ev Multani, [employer] [Primary Care Provider] - - Attending Attestation I examined this patient and my medical decision-making was reviewed with the Resident Physician Dr Contreras. I agree with the documented findings, disposition and treatment plan as described except to the extent set forth below. Ms Perez requires admission for enecpahlaopthy with UTI and in setting of known zoster infection. She is back to baseline and awaiting SNF placement 10/20/18 awake, alert, converses remains at her confused baselne, denies pain or needs. no family present gen- awake, alert appears stated age cv- reg rate and rhythm, normal s1,s2 lungs- ctabl, normal resp effort neuro- AAOxperson, CN appear grossly intact Encephalopathy, suspected infectious- UTI and known non disseminated herpes zoster -UTI tx w rocephin, Zoster and cannot definitely r/o herpes enceph without LP though MRI did not identify signs of encephalitis- cont IV acyclovir -will transition to oral meds on dispo to snf to complete course Anxiety/Depression- hold seroquel in setting of AMS and cont effexor dispo plan is to SNF when she is accepted in AM 10/20/18 further dx and plan as noted by resident <Nick Contreras - Last Filed: 10/19/18 11:41> Hospitalist Progress Note - Encounter Date of Encounter: 10/19/18 Time of Encounter: 07:27 - Subjective Interval History: No acute events overnight. Patient has no acute complaints this morning and is still pleasantly confused. I did discuss with daughter who was present in the room plan for [facility] facility tomorrow and she is still agreeable to that plan. - Exam Vitals: Temp Pulse Resp BP Pulse Ox 98.5 F 74 13 163/71 94 10/19/18 05:17 10/19/18 05:17 10/19/18 05:17 10/19/18 05:17 10/19/18 05:17 Exam: Gen: Oriented to person, no acute distress, pleasant affect Chest: CTA b/l, no wheezes or crackles Cardio: S1/S2, no m/r/g. Abd: non-tender, soft, bowel sounds present Skin: shingles rash on left upper arm extending to back, does not cross midline, improving with topical treatment; skin otherwise warm and dry Neuro: spontaneously moves upper and lower extremities, sensation intact on all 4 extremities MSK: muscle strength 5/5 in all extremities, exam limited due to Pt.'s mental status HEENT: normocephalic, PERRLA - Assessment and Plan (1) Encephalopathy Current Visit: Yes Status: Resolved Assessment and Plan: Patient originally presented with altered mental status, workup negative for acute stroke or ACS Patient did have active zoster infection, acyclovir was started immediately, lumbar puncture was noncontributory, however MRI showed no signs of encephalitis Patient also tested positive for urinary tract infection, Rocephin was initiated With treatment mental status has improved now to the point of baseline per family Current plan is to continue Rocephin and acyclovir Anticipate discharge tomorrow, at which point patient will require 2 more days of nitrofurantoin for a 7 day treatment course for UTI and 9 more days valacyclovir for a 14 day course for zoster with possible encephalitis (2) Diabetes mellitus Current Visit: No Status: Chronic Assessment and Plan: Diabetic diet and low-dose sliding scale insulin corrective protocol (3) Hypertension Current Visit: No Status: Chronic Assessment and Plan: Continue home beta saray (4) Aortic stenosis Current Visit: No Status: Chronic Assessment and Plan: Patient has known aortic stenosis with history of valve replacement, she is not on anticoagulation due to bleeding risk (5) CAD (coronary artery disease) Current Visit: No Status: Chronic Assessment and Plan: Continue home statin and beta saray (6) UTI (urinary tract infection) Current Visit: Yes Status: Acute Assessment and Plan: Treatment plan as above (7) Varicella zoster Current Visit: Yes Status: Acute Assessment and Plan: Treatment plan as above (8) DVT prophylaxis Current Visit: Yes Status: Acute Assessment and Plan: Sequential compression devices - Time Spent with Patient Total time spent is greater than 50% in coordination of care (as documented) at patient's floor/unit and/or counseling patient: Internal Medicine: Result - Labs CBC & Chem 7: 10/19/18 03:07 10/19/18 03:07 Labs: Short CBC 10/19/18 Range/Units 03:07 WBC 6.5 (4.3-11.1) K/mcL Hgb 10.4 L (11.5-15.4) g/dL Hct 30.2 L (35.3-44.9) % Plt Count 149 (140-400) K/mcL Neutrophils # 4.4 (1.6-8.9) K/mcL BMP 10/19/18 03:07 Sodium 135 L Potassium 3.7 Chloride 102 Carbon Dioxide 24 BUN 8 Creatinine 0.61 Glucose 129 H Calcium 8.3 L <Vivian Odonnell - Last Filed: 10/19/18 10:46> (1) Diabetes mellitus Qualifiers: Diabetes mellitus type: type 2 Diabetes mellitus [facility] insulin use: without roasterman use Diabetes mellitus complication status: with hyperglycemia Qualified Code(s): E11.65 - Type 2 diabetes mellitus with hyperglycemia (2) UTI (urinary tract infection) Qualifiers: Urinary tract infection type: acute cystitis Hematuria presence: with hematuria Qualified Code(s): N30.01 - Acute cystitis with hematuria (4) Altered mental status Qualifiers: Altered mental status type: somnolence Qualified Code(s): R40.0 - Somnolence <Nick Contreras - Last Filed: 10/19/18 11:41> (2) Diabetes mellitus Qualifiers: Diabetes mellitus type: type 2 Diabetes mellitus roasterman insulin use: without roasterman use Diabetes mellitus complication status: with hyperglycemia Qualified Code(s): E11.65 - Type 2 diabetes mellitus with hyperglycemia (3) Hypertension Qualifiers: Hypertension type: essential hypertension Qualified Code(s): I10 - Essential (primary) hypertension (4) Aortic stenosis Qualifiers: Cardiac valve disease etiology: etiology unspecified Qualified Code(s): I35.0 - Nonrheumatic aortic (valve) stenosis (5) CAD (coronary artery disease) Qualifiers: Coronary Disease-Associated Artery/Lesion type: [place] artery [place] vs. t ransplanted heart: [place] heart Associated angina: without angina Qualified Code(s): I25.10 - Atherosclerotic heart disease of [place] coronary artery without angina pectoris (6) UTI (urinary tract infection) Qualifiers: Urinary tract infection type: acute cystitis Hematuria presence: with hematuria Qualified Code(s): N30.01 - Acute cystitis with hematuria
[2018-10-19] MEDS: Cholecalciferol (D-3) 1,000 UNIT (25MCG) TABLET PO SCH (08:56)
[2018-10-19] MEDS: Venlafaxine XR (24 HR) 150 MG CAP.ER.24H PO SCH (08:56)
[2018-10-19] MEDS: Metoprolol XL (24 HR) Succ 25 MG TAB.ER.24H PO SCH (08:57)
[2018-10-19] MEDS: cefTRIAXone 1,000 MG in Water for inj. (sterile) 10 ML IVP SCH (08:58)
[2018-10-19] MEDS: Insulin LISPRO 300 UNITS/3 ML VIAL SQ SCH ×4 (10:26→20:53)
[2018-10-19] MEDS: DiphenhydraMINE CREAM 28.4 GM TUBE TP PRN ×2 (12:54→21:04)
[2018-10-20] MEDS: D5 IVPB SCH ×2 (05:52→13:11)
[2018-10-20] MEDS: WATER IVPB SCH ×2 (05:52→13:11)
[2018-10-20] MEDS: ACYCLOVIR IVPB SCH ×2 (05:52→13:11)
[2018-10-20] MEDS: DiphenhydraMINE CREAM 28.4 GM TUBE TP PRN (05:53)
--- NOTE | 2018-10-20 07:32 | Discharge Summary ---
<Vivian Odonnell - Last Filed: 10/20/18 09:32> Orders not resulted at time of discharge: Pending orders 10/16/18 18:46 Culture,Blood [] Stat Date of Encounter: 10/20/18 - Discharge Diagnosis (1) Diabetes mellitus Status: Chronic Qualifiers: Diabetes mellitus type: type 2 Diabetes mellitus tank terminal gauger insulin use: without tank terminal gauger use Diabetes mellitus complication status: with hyperglycemia Qualified Code(s): E11.65 - Type 2 diabetes mellitus with hyperglycemia (2) UTI (urinary tract infection) Status: Acute Qualifiers: Urinary tract infection type: acute cystitis Hematuria presence: with hematuria Qualified Code(s): N30.01 - Acute cystitis with hematuria (3) Varicella zoster Status: Acute (4) Altered mental status Status: Acute Qualifiers: Altered mental status type: somnolence Qualified Code(s): R40.0 - Somnolence (5) DVT prophylaxis Status: Acute Hospital course: Ms. Perez is a 87 year old female - Time Spent with Patient Total time spent providing and/or coordinating discharge services: - Discharge Medications Prescriptions: New Nitrofurantoin (BID) [Macrobid] 100 mg PO BID 2 Days #4 capsule Continued Allopurinol [Zyloprim 100 MG] 100 mg PO DAILY Simvastatin [Zocor] 20 mg PO HS Venlafaxine HCl [Venlafaxine HCl ER] 150 mg PO DAILY Calcium Carbonate/Vitamin D3 [Calcium 600 + Vit D Tablet] 1 each PO DAILY Cholecalciferol (D-3) [Vitamin D] 2,000 unit PO DAILY Metoprolol Succinate [Toprol Xl] 12.5 mg PO DAILY Quetiapine Fumarate [Seroquel] 25 mg PO HS valACYclovir [Valtrex] 1,000 mg PO Q8H 6 Days #18 tablet Home Medications: Allopurinol [Zyloprim 100 MG] 100 mg PO DAILY 07/07/15 [History] Calcium Carbonate/Vitamin D3 [Calcium 600 + Vit D Tablet] 1 each PO DAILY 07/07/15 [History] Simvastatin [Zocor] 20 mg PO HS 07/07/15 [History] Venlafaxine HCl [Venlafaxine HCl ER] 150 mg PO DAILY 07/07/15 [History] Cholecalciferol (D-3) [Vitamin D] 2,000 unit PO DAILY 10/17/17 [History] Metoprolol Succinate [Toprol Xl] 12.5 mg PO DAILY 10/17/17 [History] Quetiapine Fumarate [Seroquel] 25 mg PO HS 10/17/17 [History] Nitrofurantoin (BID) [Macrobid] 100 mg PO BID 2 Days #4 capsule 10/20/18 [Rx] valACYclovir [Valtrex] 1,000 mg PO Q8H 6 Days #18 tablet 10/20/18 [Rx] Allergies/Adverse Reactions: Allergy/AdvReac Type Severity Reaction Status Date / Time atorvastatin [From Lipitor] Allergy Muscle Pain Verified 07/07/15 01:42 morphine AdvReac Nightmare Verified 07/07/15 01:42 Date of admission: 10/17/18 09:58 Primary care physician: Ev Multani CNP Consults: 10/16/18 23:29 Consult to Redrying Machine Operator [CONS] Routine Reason for SW Consult: home with family 10/18/18 08:47 Consult to Occupational Therapy [CONS] Routine Comment: Evaluate, develop and implement POC Reason for Consult: establish functional capacity and recs on rehab potential/requirements Does patient have active BEDREST order?: No Is patient medically & hemodynamically stable?: Yes Patient assessed for mobility or mobilized this visit?: No Consult to Palliative Care [CONS] Routine Comment: Consulting Provider: Palliative Care Mini Reason for Consult: goals of care complete, patient is DNRCC, requesting guidance on care options Time Notified: 08:48 Call Completed: Yes Consult to Physical Therapy [CONS] Routine Comment: Evaluate, develop and implement POC Reason for Consult: establish functional capacity and recs on rehab potential/requirements Does patient have active BEDREST order?: No Is patient medically & hemodynamically stable?: Yes Patient assessed for mobility or mobilized this visit?: No - Constitutional Vitals: Temp Pulse Resp BP Pulse Ox 98.1 F 71 14 150/64 92 10/20/18 07:43 10/20/18 07:43 10/20/18 07:43 10/20/18 07:43 10/20/18 07:43 - Patient Status Disposition: Transfer SNF Condition: Fair - Discharge Instructions Follow Up With: Ev Multani CNP [Primary Care Provider] - - Attending Attestation I examined this patient and my medical decision-making was reviewed with the Resident Physician Dr Contreras. I agree with the documented findings, disposition and treatment plan as described except to the extent set forth below. Ms Perez required admission for enecpahlaopthy with UTI and in setting of known zoster infection. She is back to baseline and awaiting SNF placement today awake, alert, converses baseline confusion. Staff at bedside. She denies pain or needs. Encouraged to eat breakfast. Will dc to snf today, no family present but were updated yesterday to plan gen- awake, alert appears stated age cv- reg rate and rhythm, normal s1,s2, no le edema lungs- ctabl, normal resp effort on room air skin- warm, dry neuro- AAOxperson, CN appear grossly intact Encephalopathy, suspected infectious- UTI and known non disseminated herpes zoster could not definitely r/o herpes enceph without LP though MRI did not identify signs of encephalitis -transition to oral abx to complete UTI tx course and oral acyclovir to cont zoster tx Dementia Anxiety/Depression- we held seroquel in setting of AMS, this may be resumed on dc now that she remains at baseline and cont effexor dispo plan is to SNF when she is accepted in AM 10/20/18 further dx and plan as noted by resident time spent on dc 40 min <Nick Contreras - Last Filed: 10/20/18 13:01> - NOTES TO OUTPATIENT PROVIDER Notes to Outpatient Provider: Patient was admitted for altered mental status secondary to encephalopathy. Suspected source was UTI and zoster/possible herpes encephalitis. Back at baseline. Oral Valtrex to be continued through 10/26, oral Macrobid be continued through 10/22. Seroquel held during hospitalization due to AMS, restarted your discretion. Orders not resulted at time of discharge: Pending orders 10/16/18 18:46 Culture,Blood [BC] Stat Date of Encounter: 10/20/18 Time of Encounter: 07:32 - Discharge Diagnosis (1) Encephalopathy Priority: Primary Status: Resolved (2) Diabetes mellitus Priority: Secondary Status: Chronic Qualifiers: Diabetes mellitus type: type 2 Diabetes mellitus tank terminal gauger insulin use: without skilled nursing use Diabetes mellitus complication status: with hyperglycemia Qualified Code(s): E11.65 - Type 2 diabetes mellitus with hyperglycemia (3) Hypertension Priority: Secondary Status: Chronic Qualifiers: Hypertension type: essential hypertension Qualified Code(s): I10 - Essential (primary) hypertension (4) Aortic stenosis Priority: Secondary Status: Chronic Qualifiers: Cardiac valve disease etiology: etiology unspecified Qualified Code(s): I35.0 - Nonrheumatic aortic (valve) stenosis (5) CAD (coronary artery disease) Priority: Secondary Status: Chronic Qualifiers: Coronary Disease-Associated Artery/Lesion type: [place] artery [place] vs. transplanted heart: [place] heart Associated angina: without angina Qualified Code(s): I25.10 - Atherosclerotic heart disease of [place] coronary artery without angina pectoris (6) UTI (urinary tract infection) Priority: Primary Status: Acute Qualifiers: Urinary tract infection type: acute cystitis Hematuria presence: with hematuria Qualified Code(s): N30.01 - Acute cystitis with hematuria (7) Varicella zoster Priority: Primary Status: Acute (8) DVT prophylaxis Priority: Secondary Status: Acute Hospital course: Ms. Perez is a 87 year old female with a past medical history of dementia, coronary artery disease, diabetes. Patient presented to the emergency department with altered mental status. She was primarily taken care of by her family, who states that for the prior week she has not been acting like herself. She had been more fatigued and lethargic and not making sense when she talks. Evaluation was significant for UTI, and active shingles infection on the left arm. She was admitted and started on ceftriaxone and IV acyclovir. Multiple lumbar punctures were attempted but noncontributory, and patient family requested they be stopped for patient comfort. MRI was not suggestive of encephalitis. The patient remained on IV acyclovir and IV Rocephin. Within the next day or 2 of admission she did have resolution of her altered mental status and was back to baseline per family. Goals of care and discharge disposition discussion was had with family. Everyone was in ingredients that family could not continue to care for the patient at home and that she would require halfway facility. She was held for several more days and continued to have improvement in clinical disposition. Chronic medical conditions were managed with home medications. Family did decide on [facility] halfway facility and she was kept until 10/20 when placement was available. She will be discharged in stable medical condition with continuation of home medication regimen for chronic conditions as well as oral valacyclovir to be continued through 10/26 and oral Macrobid to be continued through 10/22. Patient will also be resumed on home Seroquel which was held during hospitalization due to altered mental status. Continuation or cessation of this medication can be discretion of outside provider. Discharge discussed with: patient, family, social work - Time Spent with Patient Total time spent providing and/or coordinating discharge services: Date of admission: 10/17/18 09:58 Primary care physician: Ev Multani CNP Consults: 10/16/18 23:29 Consult to Redrying Machine Operator [CONS] Routine Reason for SW Consult: home with family 10/18/18 08:47 Consult to Occupational Therapy [CONS] Routine Comment: Evaluate, develop and implement POC Reason for Consult: establish functional capacity and recs on rehab potential/requirements Does patient have active BEDREST order?: No Is patient medically & hemodynamically stable?: Yes Patient assessed for mobility or mobilized this visit?: No Consult to Palliative Care [CONS] Routine Comment: Consulting Provider: Palliative Care Mini Reason for Consult: goals of care complete, patient is DNRCC, requesting guidance on care options Time Notified: 08:48 Call Completed: Yes Consult to Physical Therapy [CONS] Routine Comment: Evaluate, develop and implement POC Reason for Consult: establish functional capacity and recs on rehab potential/requirements Does patient have active BEDREST order?: No Is patient medically & hemodynamically stable?: Yes Patient assessed for mobility or mobilized this visit?: No Discharging clinician: Nick Contreras Anticipated date of discharge: 10/20/18 - Constitutional Vitals: Temp Pulse Resp BP Pulse Ox 98 F 72 17 147/75 92 10/20/18 04:06 10/20/18 04:06 10/20/18 04:06 10/20/18 04:06 10/20/18 04:06 General appearance: Present: no acute distress. Absent: cooperative, answers questions appropriately Exam: Gen: Oriented to person, no acute distress, pleasant affect Chest: CTA b/l, no wheezes or crackles Cardio: S1/S2, no m/r/g. Abd: non-tender, soft, bowel sounds present Skin: shingles rash on left upper arm extending to back, does not cross midline, improving with topical treatment; skin otherwise warm and dry Neuro: spontaneously moves upper and lower extremities, sensation intact on all 4 extremities MSK: muscle strength 5/5 in all extremities, exam limited due to Pt.'s mental status HEENT: normocephalic, PERRLA - Patient Status Functional capacity at discharge: wheelchair bound Overall status at discharge: patient is back to baseline - Diet and Activity Activity: as per physical therapy Diet: diabetic diet
[2018-10-20] MEDS: Venlafaxine XR (24 HR) 150 MG CAP.ER.24H PO SCH (07:49)
[2018-10-20] MEDS: Cholecalciferol (D-3) 1,000 UNIT (25MCG) TABLET PO SCH (07:49)
[2018-10-20] MEDS: Metoprolol XL (24 HR) Succ 25 MG TAB.ER.24H PO SCH (07:50)
[2018-10-20] MEDS: Insulin LISPRO 300 UNITS/3 ML VIAL SQ SCH ×2 (07:50→13:13)
[2018-10-20] MEDS: cefTRIAXone 1,000 MG in Water for inj. (sterile) 10 ML IVP SCH (07:50)
--- NOTE | 2018-10-20 12:15 | Physician Discharge Referral ---
ExtendedCare Referral Info Provider in Charge after Transfer: PCP Institutional Level of Care: Skilled - Diagnosis (1) Altered mental status Priority: Primary Status: Resolved (2) UTI (urinary tract infection) Priority: Secondary Status: Acute (3) Varicella zoster Priority: Secondary Status: Acute (4) Diabetes mellitus Priority: Secondary Status: Chronic (5) Aortic stenosis Priority: Secondary Status: Chronic (6) CAD (coronary artery disease) Priority: Secondary Status: Chronic (7) Dementia Priority: Secondary Status: Chronic (8) Dyslipidemia Priority: Secondary Status: Chronic (9) Hypertension Priority: Secondary Status: Chronic - Transfer Medications Prescriptions: Nitrofurantoin (BID) [Macrobid] 100 mg PO BID 2 Days #4 capsule valACYclovir [Valtrex] 1,000 mg PO Q8H 6 Days #18 tablet Home Medications: Allopurinol [Zyloprim 100 MG] 100 mg PO DAILY 07/07/15 [History] Calcium Carbonate/Vitamin D3 [Calcium 600 + Vit D Tablet] 1 each PO DAILY 07/07/15 [History] Simvastatin [Zocor] 20 mg PO HS 07/07/15 [History] Venlafaxine HCl [Venlafaxine HCl ER] 150 mg PO DAILY 07/07/15 [History] Cholecalciferol (D-3) [Vitamin D] 2,000 unit PO DAILY 10/17/17 [History] Metoprolol Succinate [Toprol Xl] 12.5 mg PO DAILY 10/17/17 [History] Quetiapine Fumarate [Seroquel] 25 mg PO HS 10/17/17 [History] Nitrofurantoin (BID) [Macrobid] 100 mg PO BID 2 Days #4 capsule 10/20/18 [Rx] valACYclovir [Valtrex] 1,000 mg PO Q8H 6 Days #18 tablet 10/20/18 [Rx] Allergies/Adverse Reactions: Allergy/AdvReac Type Severity Reaction Status Date / Time atorvastatin [From Lipitor] Allergy Muscle Pain Verified 07/07/15 01:42 morphine AdvReac Nightmare Verified 07/07/15 01:42 - Respiratory Orders None Smoking Cessation: Smoking cessation has been advised. For more information, call the [employer] Tobacco Quit Line at 6-089-BRYE-NOW. - Ancillary Orders May use pressure relief devices daily prn - Advance Directives Code Status: DNR-Comfort Care - Rehabiliation Orders Rehab Potential: Fair Rehab Orders: ROM Exercises, Evaluation for Physical Therapy, Evaluation for Occupational Therapy - Treatments Skin tear care topically daily PRN per policy List/Other: Requires completion of anti viral for herpes zoster and completion of antibiotic for UTI as prescribed - Diet Orders Regular, No Added Salt (RICH), No Concentrated Sweets, Cardiac CERTIFICATION: I certify that the transfer of the above named patient to an Extended Care Facility is necessary for the continuing treatment of the diagnosis listed. The above information is true and accurate reflection of patient's current condition. Confidential - Redisclosure prohibited without a patient's written consent.
[2018-10-20 12:29] VITALS: BP 130/62
== END 2018-10-20 14:11 ==
LOC: EMEROOARM 17:14 → 2ANU 17:14 → SUATTDRO 22:34 → 2ANU 22:58
PROVIDERS: ADMIT Family Medicine; ATTEND Internal Medicine